=== PATIENT | female | born 1990 | race Caucasian/White ===

== ENCOUNTER 2022-05-30 15:51 | Emergency (ER) | payer OTHER ==
--- OUTSIDE RECORDS SUMMARY | 2022-05-30 15:55 | XMS REPORT | Continuity of Care Document ---
:1990 Author Organization [facility] t Address [address] [address] Care Team Providers Name Role Phone Harjit Rod Attending Clinician Unavailable Geneva Falcon Attending Clinician Unavailable Juana Dunaway Attending Clinician Unavailable Harjit Rod Admitting Clinician Unavailable Physician, No Primary or Family Admitting Clinician Unavaila ble Payers Payer Name Policy Type Policy Number Effective Date Expiration Date S ource Problems This patient has no known problems. Allergies, Adverse Reactions, Alerts Allergy Allergy Status Severity Reaction(s) Onset Inactive Treating Comm ents Source Name Type Date Date Clinician No Known DA Active U 2020-0 [facility] Clear s 00:00: [place] [facility] No Known DA Active U 2020-0 [facility] 06-03 Clear s 00:00: [address] No Known DA Active U 2020-0 [facility] 03-30 Clear s 00:00: [address] No Known DA Active U 2020-0 [facility] 03-30 Clear s 00:00: [address] No Known DA Active U 2015-0 [facility] 02-22 Clear s 00:00: [address] No Known DA Active U 2015-0 [facility]ie 4 Clear s 00:00: Espinoza [address] [place] [address] Medications This patient has no known medications. Procedures Procedure Date / Time Performed Performing Clinician Roberto edmond [id number] 2020-06-23 00:00:00 [facility] Encounters Start End Encounter Admission Attending Care Care Encounter Source Date/Time Date/Time Type Type Clinicians Facility Department ID 2020-07-08 Inpatient Viola, [facility] OUTD [id number] [facility] 07:15:00 Geffrey [address] [facility] 2020-06-23 Inpatient CHRISS Rod, [facility] OBPP [id number] [facility] 05:31:00 Geffrey [address] [facility] 2020-06-20 Inpatient Terrie, [facility] EMILIE [id number] [facility] 01:00:00 [place] [address] [facility] 2020-06-03 Inpatient Viola, [facility] EMILIE [id number] [facility] 12:08:00 Geffrey [address] [facility] 2020-03-30 Inpatient Binh [facility] EMILIE [id number] [facility] 15:12:00 Eric, [address] Ayan Arias [facility] 2020-06-11 2020-06-11 Outpatient CHRISS Rod [facility] OUTD [id number] [facility] 12:13:00 12:13:00 Geffrey [address] [facility] 2020-05-28 2020-05-28 Outpatient DEANNE Rod [facility] EMILIE [id number] [facility] 12:45:00 12:45:00 Geffrey [address] [facility] Results Test Description Test Time Test Comments Results Result Comments Source CBC W/AUTO DIFF 2020-06-24 06:54:00 Test Item Value Reference Range Interpretation Comme nts WHITE BLOOD CELL (test code = WBC) 12.10 x10 3/uL 4.5-11.0 H RED BLOOD CELL (test code = RBC) 3.37 x10 6/uL 3.54-5.02 L HEMOGLOBIN (test code = HGB) 9.5 g/dL 11.0-15.0 L HEMATOCRIT (test code = HCT) 31.3 % 33.0-45.0 L MEAN CELL VOLUME (test code = MCV) 92.9 fL 81.0-99.0 N MEAN CELL HGB (test code = MCH) 28.2 pg 27.0-33.0 N MEAN CELL HGB CONCETRATION (test code = MCHC) 30.4 g/dL 33.0-37. 0 L RED CELL DISTRIBUTION WIDTH CV (test code = RDW) 14.9 % 11.5- 14.5 H RED CELL DISTRIBUTION WIDTH SD (test code = RDW-SD) 49.9 fL 37 .0-54.0 N PLATELET COUNT (test code = PLT) 256 x10 3/uL 150-400 N MEAN PLATELET VOLUME (test code = MPV) 12.3 fL 7.0-9.0 H NEUTROPHIL % (test code = NT%) 71.3 % 56.0-77.0 N IMMATURE GRANULOCYTE % (test code = IG%) 0.7 % 0.0-2.0 N LYMPHOCYTE % (test code = LY%) 19.7 % 14.0-32.0 N MONOCYTE % (test code = MO%) 7.8 % 4.8-9.0 N EOSINOPHIL % (test code = EO%) 0.2 % 0.3-3.7 L BASOPHIL % (test code = BA%) 0.3 % 0.0-2.0 N NUCLEATED RBC % (test code = NRBC%) 0.0 % 0-0 N NEUTROPHIL # (test code = NT#) 8.64 x10 3/uL 2.0-7.6 H IMMATURE GRANULOCYTE # (test code = IG#) 0.08 x10 3/uL 0.00-0.03 H LYMPHOCYTE # (test code = LY#) 2.38 x10 3/uL 1.0-3.8 N MONOCYTE # (test code = MO#) 0.94 x10 3/uL 0.1-0.8 H EOSINOPHIL # (test code = EO#) 0.02 x10 3/uL 0.0-0.2 N BASOPHIL # (test code = BA#) 0.04 x10 3/uL 0.0-0.2 N NUCLEATED RBC # (test code = NRBC#) 0.00 x10 3/uL 0.0-0.1 N MANUAL DIFF REQUIRED (test code = MDIFF) NO COMPREHENSIVE METABOLIC [id number] 05:33:00 Test Item Value Reference Range Interpretation Comments SODIUM (test code = NA) 137 mEq/L 134-147 N POTASSIUM (test code = 3.8 mEq/L 3.4-5.0 N K) CHLORIDE (test code = 106 mEq/L 100-108 N CL) CARBON DIOXIDE (test 20 mEq/L 21-33 L code = CO2) ANION GAP (test code = 15 0-20 N GAP) GLUCOSE (test code = 87 mg/dL 70-110 N GLU) BLOOD UREA NITROGEN 7 mg/dL 7-18 N (test code = BUN) GLOMERULAR FILTRATION 119.9 110-120 N Units of measure = RATE (test code = GFR) ml/mi n/1.73 m2 CREATININE (test code = 0.6 mg/dL 0.6-1.3 N CREAT) TOTAL PROTEIN (test 5.0 g/dL 6.4-8.2 L code = PROT) ALBUMIN (test code = 2.30 g/dL 3.4-5.0 L ALB) CALCIUM (test code = 8.3 mg/dL 8.0-10.5 N CA) BILIRUBIN TOTAL (test 0.30 mg/dL 0.0-1.0 N code = BILT) SGOT/AST (test code = 16 IUnit/L 15-37 N AST) SGPT/ALT (test code = 11 IUnit/L 30-65 L ALT) ALKALINE PHOSPHATASE 105 IUnit/L 20-125 N TOTAL (test code = ALKP) RAPID PLASMA [id number] 10:18:00 Test Item Value Reference Range Interpretation Comments RAPID PLASMA REAGIN (test code = NONREACTIVE NONREACTIVE RPR) AG HEPATITIS B [id number] 10:18:00 Test Item Value Reference Range Interpretation Comments AG HEPATITIS B SURFACE NON REACTIVE INDEX NonReactive (test code = HBSAG) AB HIV 1 10:18:00 Test Item Value Reference Range Interpretation Comments AB HIV 1 2 (test code = NONREACTIVE INDEX NONREACTIVE [id number]) COVID 19 Asymptomatic IH [id number] 15:55:00 Test Item Value Reference Range Interpretation Comments COVID 19 Asymptomatic Negative Negative A nega tive result is IH AG (test code = presumpti ve and should COVNONPUIAG) be confirmedwit h an FDA authorized mole cular assay, if neces orion forpatient amy gement.A positive result does not rule out co-inf ections withother patho gens.This test detects alejandra viable (live) and non-viable,SARS -CoV, and SARS-CoV-2. Leonides t performance dep ends on theamount of vi layo (antigen) in th e sample.This leonides t has not been FDA cleare d or approved; the t est hasbeen authori zed by FDA under an Em ergency Use Authorizati on(EUA) for use by labo ratories certified under the CLIA thatmeet the requirements to perform moderate, high or waivedcomplexit y tests. RAPID PLASMA [id number] 13:09:00 Test Item Value Reference Range Interpretation Comments RAPID PLASMA REAGIN (test code = RPR) NONREACTIVE AG HEPATITIS B [id number] 13:09:00 Test Item Value Reference Range Interpretation Comments AG HEPATITIS B SURFACE NON REACTIVE INDEX NonReactive (test code = HBSAG) AB HIV 1 13:09:00 Test Item Value Reference Range Interpretation Comments AB HIV 1 2 (test code = NONREACTIVE INDEX NONREACTIVE [id number]) CBC W/AUTO [id number] 12:07:00 Test Item Value Reference Range Interpretation Comments WHITE BLOOD CELL (test code = 9.48 x10 3/uL 4.5-11.0 N WBC) RED BLOOD CELL (test code = 3.94 x10 6/uL 3.54-5.02 N RBC) HEMOGLOBIN (test code = HGB) 11.0 g/dL 11.0-15.0 N HEMATOCRIT (test code = HCT) 35.9 % 33.0-45.0 N MEAN CELL VOLUME (test code = 91.1 fL 81.0-99.0 N MCV) MEAN CELL HGB (test code = MCH) 27.9 pg 27.0-33.0 N MEAN CELL HGB CONCETRATION 30.6 g/dL 33.0-37.0 L (test code = MCHC) RED CELL DISTRIBUTION WIDTH CV 14.6 % 11.5-14.5 H (test code = RDW) RED CELL DISTRIBUTION WIDTH SD 47.9 fL 37.0-54.0 N (test code = RDW-SD) PLATELET COUNT (test code = 275 x10 3/uL 150-400 N PLT) MEAN PLATELET VOLUME (test code 11.6 fL 7.0-9.0 H = MPV) NEUTROPHIL % (test code = NT%) 74.8 % 56.0-77.0 N IMMATURE GRANULOCYTE % (test 0.9 % 0.0-2.0 N code = IG%) LYMPHOCYTE % (test code = LY%) 17.1 % 14.0-32.0 N MONOCYTE % (test code = MO%) 6.3 % 4.8-9.0 N EOSINOPHIL % (test code = EO%) 0.6 % 0.3-3.7 N BASOPHIL % (test code = BA%) 0.3 % 0.0-2.0 N NUCLEATED RBC % (test code = 0.0 % 0-0 N NRBC%) NEUTROPHIL # (test code = NT#) 7.08 x10 3/uL 2.0-7.6 N IMMATURE GRANULOCYTE # (test 0.09 x10 3/uL 0.00-0.03 H code = IG#) LYMPHOCYTE # (test code = LY#) 1.62 x10 3/uL 1.0-3.8 N MONOCYTE # (test code = MO#) 0.60 x10 3/uL 0.1-0.8 N EOSINOPHIL # (test code = EO#) 0.06 x10 3/uL 0.0-0.2 N BASOPHIL # (test code = BA#) 0.03 x10 3/uL 0.0-0.2 N NUCLEATED RBC # (test code = 0.00 x10 3/uL 0.0-0.1 N NRBC#) MANUAL DIFF REQUIRED (test code NO = MDIFF) URINALYSIS [id number] 02:42:00 Test Item Value Reference Range Interpretation Comments UA COLOR (test code = COLU) YELLOW YEL/STRAW UA APPEARANCE (test code = APPU) CLEAR CLEAR UA GLUCOSE DIPSTICK (test code = NEGATIVE NEGATIVE DGLUU) UA BILIRUBIN DIPSTICK (test code NEGATIVE NEGATIVE = BILU) UA KETONE DIPSTICK (test code = NEGATIVE NEGATIVE KETU) UA SPECIFIC GRAVITY (test code = 1.023 1.005-1.030 N SGU) UA BLOOD DIPSTICK (test code = 2+ NEGATIVE A BRODERICK) UA PH DIPSTICK (test code = ZINA) 6.0 5.0-7.0 N UA PROTEIN DIPSTICK (test code = 1+ NEGATIVE A PROU) UA UROBILINIOGEN DIPSTICK (test 0.2 mg/dL 0.2-1.0 code = URO) UA NITRITE DIPSTICK (test code = NEGATIVE NEGATIVE DEJUAN) UA LEUKOCYTE ESTERASE DIPSTICK NEGATIVE NEGATIVE (test code = LEUU) UA RBC (test code = RBCU) >50 RBC/HPF 0-3 A UA WBC NO REFLEX (test code = 4-9 WBC/HPF 0-3 A WBCUCL) UA BACTERIA (test code = BACU) 2+ /HPF NONE SEEN A UA SQUAMOUS CELLS (test code = 0-5 /HPF NONE SEEN SQU) UA CALCIUM OXALATE CRYSTALS (test TRACE /HPF NONE SEEN code = CAOXU) UA MUCUS (test code = MUCU) 2+ /LPF NONE SEEN A UR PROTEIN/CREATININE [id number] 02:42:00 Test Item Value Reference Range Interpretation Comments UR PROTEIN RANDOM 27 mg/dL No te: Change in (test code = UNITS of MEASUR EMENT. PROTU) The Refe rence Range and Metho d Performance specificationsh ave not been establishe d for this fluid. The test resultshould be correlated into the clinical contex t forinterpretati on. UR CREATININE 160.8 mg/dL The Reference Range and RANDOM (test code Method Per formance = CREATU) specificationsh ave not been establishe d for this fluid. The test resultshould be correlated into the clinical contex t forinterpretati on. PROTEIN/CREATININ 0.17 E RATIO (test code = P/CRATIO) COMPREHENSIVE METABOLIC [id number] 02:15:00 Test Item Value Reference Range Interpretation Comments SODIUM (test code = NA) 138 mEq/L 134-147 N POTASSIUM (test code = 3.7 mEq/L 3.4-5.0 N K) CHLORIDE (test code = 108 mEq/L 100-108 N CL) CARBON DIOXIDE (test 20 mEq/L 21-33 L code = CO2) ANION GAP (test code = 13 0-20 N GAP) GLUCOSE (test code = 88 mg/dL 70-110 N GLU) BLOOD UREA NITROGEN 10 mg/dL 7-18 N (test code = BUN) GLOMERULAR FILTRATION 100.4 110-120 L Units of measure = RATE (test code = GFR) ml/mi n/1.73 m2 CREATININE (test code = 0.7 mg/dL 0.6-1.3 N CREAT) TOTAL PROTEIN (test 5.6 g/dL 6.4-8.2 L code = PROT) ALBUMIN (test code = 2.80 g/dL 3.4-5.0 L ALB) CALCIUM (test code = 8.7 mg/dL 8.0-10.5 N CA) BILIRUBIN TOTAL (test 0.30 mg/dL 0.0-1.0 N code = BILT) SGOT/AST (test code = 12 IUnit/L 15-37 L AST) SGPT/ALT (test code = 8 IUnit/L 30-65 L ALT) ALKALINE PHOSPHATASE 130 IUnit/L 20-125 H TOTAL (test code = ALKP) URIC [id number] 02:15:00 Test Item Value Reference Range Interpretation Comments URIC ACID (test code = URIC) 5.5 mg/dL 2.6-7.2 N LACTIC DEHYDROGENASE(LDH)2020-06-20 02:15:00 Test Item Value Reference Range Interpretation Comments LACTIC DEHYDROGENASE(LDH) (test 138 IUnits/L 84-246 N code = LDH) URINALYSIS [id number] 02:14:00 Test Item Value Reference Range Interpretation Comments UA COLOR (test code = COLU) YEL/STRAW UA APPEARANCE (test code = APPU) CLEAR UA GLUCOSE DIPSTICK (test code = NEGATIVE DGLUU) UA BILIRUBIN DIPSTICK (test code = NEGATIVE BILU) UA KETONE DIPSTICK (test code = NEGATIVE KETU) UA SPECIFIC GRAVITY (test code = 1.005-1.030 SGU) UA BLOOD DIPSTICK (test code = BRODERICK) NEGATIVE UA PH DIPSTICK (test code = ZINA) 5.0-7.0 UA PROTEIN DIPSTICK (test code = NEGATIVE PROU) UA UROBILINIOGEN DIPSTICK (test code mg/dL 0.2-1.0 = URO) UA NITRITE DIPSTICK (test code = NEGATIVE DEJUAN) UA LEUKOCYTE ESTERASE DIPSTICK (test NEGATIVE code = LEUU) UA RBC (test code = RBCU) RBC/HPF 0-3 UR PROTEIN/CREATININE [id number] 02:14:00 Test Item Value Reference Range Interpretation Comments UR PROTEIN RANDOM 27 mg/dL No te: Change in (test code = UNITS of MEASUR EMENT. PROTU) The Refe rence Range and Metho d Performance specificationsh ave not been establishe d for this fluid. The test resultshould be correlated into the clinical contex t forinterpretati on. UR CREATININE 160.8 mg/dL The Reference Range and RANDOM (test code Method Per formance = CREATU) specificationsh ave not been establishe d for this fluid. The test resultshould be correlated into the clinical contex t forinterpretati on. PROTEIN/CREATININ 0.17 E RATIO (test code = P/CRATIO) CBC W/AUTO [id number] 01:59:00 Test Item Value Reference Range Interpretation Comments WHITE BLOOD CELL (test code = 9.90 x10 3/uL 4.5-11.0 N WBC) RED BLOOD CELL (test code = 3.71 x10 6/uL 3.54-5.02 N RBC) HEMOGLOBIN (test code = HGB) 10.5 g/dL 11.0-15.0 L HEMATOCRIT (test code = HCT) 33.4 % 33.0-45.0 N MEAN CELL VOLUME (test code = 90.0 fL 81.0-99.0 N MCV) MEAN CELL HGB (test code = MCH) 28.3 pg 27.0-33.0 N MEAN CELL HGB CONCETRATION 31.4 g/dL 33.0-37.0 L (test code = MCHC) RED CELL DISTRIBUTION WIDTH CV 14.4 % 11.5-14.5 N (test code = RDW) RED CELL DISTRIBUTION WIDTH SD 46.5 fL 37.0-54.0 N (test code = RDW-SD) PLATELET COUNT (test code = 269 x10 3/uL 150-400 N PLT) MEAN PLATELET VOLUME (test code 11.2 fL 7.0-9.0 H = MPV) NEUTROPHIL % (test code = NT%) 71.7 % 56.0-77.0 N IMMATURE GRANULOCYTE % (test 0.7 % 0.0-2.0 N code = IG%) LYMPHOCYTE % (test code = LY%) 17.8 % 14.0-32.0 N MONOCYTE % (test code = MO%) 8.1 % 4.8-9.0 N EOSINOPHIL % (test code = EO%) 1.3 % 0.3-3.7 N BASOPHIL % (test code = BA%) 0.4 % 0.0-2.0 N NUCLEATED RBC % (test code = 0.0 % 0-0 N NRBC%) NEUTROPHIL # (test code = NT#) 7.10 x10 3/uL 2.0-7.6 N IMMATURE GRANULOCYTE # (test 0.07 x10 3/uL 0.00-0.03 H code = IG#) LYMPHOCYTE # (test code = LY#) 1.76 x10 3/uL 1.0-3.8 N MONOCYTE # (test code = MO#) 0.80 x10 3/uL 0.1-0.8 N EOSINOPHIL # (test code = EO#) 0.13 x10 3/uL 0.0-0.2 N BASOPHIL # (test code = BA#) 0.04 x10 3/uL 0.0-0.2 N NUCLEATED RBC # (test code = 0.00 x10 3/uL 0.0-0.1 N NRBC#) MANUAL DIFF REQUIRED (test code NO = MDIFF) COVID 19 Asymptomatic IH [id number] 15:46:00 Test Item Value Reference Range Interpretation Comments COVID 19 Asymptomatic Negative Negative A nega tive result is IH AG (test code = presumpti ve and should COVNONPUIAG) be confirmedwit h an FDA authorized mole cular assay, if neces orion forpatient amy gement.A positive result does not rule out co-inf ections withother patho gens.This test detects alejandra th viable (live) and non-viable,SARS -CoV, and SARS-CoV-2. Leonides t performance dep ends on theamount of vi layo (antigen) in th e sample.This leonides t has not been FDA cleare d or approved; the t est hasbeen authori zed by FDA under an Em ergency Use Authorizati on(EUA) for use by labo ratories certified under the CLIA thatmeet the requirements to perform moderate, high or waivedcomplexit y tests. COMMENTS: OB ELEVATED BP- US PREG AFTER [id number] 15:21:00 Name: JORJE PIZANO : 1990 Age/S: 29 / F [address] [place] [address] Unit #: [id number] Loc: [place] [address] Phys: Harjit Rod MD Acct: [id number] Dis Date: Status: ADMIN PHONE #: [phone] Exam Date: 06/03/2020 1509 FAX #: [phone] Reason: COMPLTE OB, ELEVATEDBP EXAMS: CPT CODE: [id number] US PREG AFTER 1ST TRI 61915 PROCEDURE: OBSTETRICAL ULTRASOUND INDICAT ION: Elevated blood pressure. EGA 34 weeks 0 days COMPARISON: There are no previous relevant studiesavailable for correlation. TECHNIQUE: Obstetrical ultrasound is performed with grayscale and M-mode imaging. LIMITATIONS: positioning. FINDINGS: There is a single living intrauterine fetus in cephalic presentation. Limited assessment of anatomy without abnormality demonstrated. The placenta is posterior grade 2 with no evidence for previa. Cervix is not well-visualized on transabdominal imaging, grossly closed. No abnormal fluid collection. ULTRASOUND FINDINGS: Gestation: Single: Yes Cardiac Motion: Yes (BPM):119-124 Presentation: Cephalic Placenta Location: Posterior Placenta Grade: 2 Placenta Previa: No ANATOMY: Head (Ventricles, Choroid, Cerebellum, Face): Limited Four Chamber Heart: Limited Cord ins./Vessel #: Yes 3 vessel Spine long: Yes Spine transverse: Yes Stomach:Yes Bladder: Yes Kidneys: Yes Extremities: Limited Amniotic Fluid: Yes Uterus/Cervix/Adnexa: Clinical: LMP= MA= 34wks 0days Ultrasound: MA= 34 wks 2 days BPD: 8.5 cm 34 weeks 1 days HC: 32.1 cm 36 weeks 1 days AC: 29.6 cm 33 weeks 4 days FL: 6.5 cm 33 weeks 3 days Ratios Ratio Range HC/AC 1.08 0.96-1.14 FL/AC 21.9 20.00-24.00 PAGE 1 Signed Report (CONTINUED) Name: JORJE PIZANO : 1990 Age/S: 29 / F [address] [place] [address] Unit #: [id number] Loc: [place] [address] Phys: Harjit Rod MD Acct: [id number] Dis Date: Status: ADM IN PHONE #: [phone] Exam Date: 06/03/2020 1506 FAX #: [phone] Reason: COMPLTE OB, ELEVATED BP EXAMS: CPT CODE: [id number] PREG AFTER 1ST TRI 83562 <Continued> FL/BPD 76.48 71.0-87.0 EFW: 2296 +/- 344 gm LMP%: 39.4 ADALID: 8.6 cm S/D Ratio: 3.3 IMPRESSION: 1. Single living intrauterine fetus in cephalic presentationat an estimated gestational age of 34 weeks 2 days. 2. Estimated weight is at the 39th percentile. 3. Cord Doppler ratio mildly elevated. SL: PIPER at 1521 Reported and signed by: Luis Larsen M.D. CC: Harjit Rod Technologist: Lorin Linda RDMS(AB)(RCT) Trnscb Date/Time: 06/03/2020 (152) t.ASHIA Orig Print D/T: S: 06/03/2020 (1524) Probe: PAGE 2 Signed ReportCOMPREHENSIVE METABOLIC [id number] 14:05:00 Test Item Value Reference Range Interpretation Comments SODIUM (test code = NA) 137 mEq/L 134-147 N POTASSIUM (test code = 3.9 mEq/L 3.4-5.0 N K) CHLORIDE (test code = 109 mEq/L 100-108 H CL) CARBON DIOXIDE (test 21 mEq/L 21-33 N code = CO2) ANION GAP (test code = 11 0-20 N GAP) GLUCOSE (test code = 70 mg/dL 70-110 N GLU) BLOOD UREA NITROGEN 11 mg/dL 7-18 N (test code = BUN) GLOMERULAR FILTRATION 148.0 110-120 H Units of measure = RATE (test code = GFR) ml/mi n/1.73 m2 CREATININE (test code = 0.5 mg/dL 0.6-1.3 L CREAT) TOTAL PROTEIN (test 7.0 g/dL 6.4-8.2 N code = PROT) ALBUMIN (test code = 2.70 g/dL 3.4-5.0 L ALB) CALCIUM (test code = 9.3 mg/dL 8.0-10.5 N CA) BILIRUBIN TOTAL (test 0.2 MG/DL <1.5 N code = BILT) SGOT/AST (test code = 13 IUnit/L 15-37 L AST) SGPT/ALT (test code = 18 IUnit/L 15-65 N ALT) ALKALINE PHOSPHATASE 120 IUnit/L 20-125 N TOTAL (test code = ALKP) URIC [id number] 14:05:00 Test Item Value Reference Range Interpretation Comments URIC ACID (test code = URIC) 4.9 mg/dL 2.6-7.2 N LACTIC DEHYDROGENASE(LDH)2020-06-03 14:05:00 Test Item Value Reference Range Interpretation Comments LACTIC DEHYDROGENASE(LDH) (test 160 IUnits/L 84-246 N code = LDH) CBC W/AUTO [id number] 13:49:00 Test Item Value Reference Range Interpretation Comments WHITE BLOOD CELL (test code = 10.43 x10 3/uL 4.5-11.0 N WBC) RED BLOOD CELL (test code = 3.99 x10 6/uL 3.54-5.02 N RBC) HEMOGLOBIN (test code = HGB) 11.3 g/dL 11.0-15.0 N HEMATOCRIT (test code = HCT) 35.4 % 33.0-45.0 N MEAN CELL VOLUME (test code = 88.7 fL 81.0-99.0 N MCV) MEAN CELL HGB (test code = 28.3 pg 27.0-33.0 N MCH) MEAN CELL HGB CONCETRATION 31.9 g/dL 33.0-37.0 L (test code = MCHC) RED CELL DISTRIBUTION WIDTH CV 13.2 % 11.5-14.5 N (test code = RDW) RED CELL DISTRIBUTION WIDTH SD 42.8 fL 37.0-54.0 N (test code = RDW-SD) PLATELET COUNT (test code = 294 x10 3/uL 150-400 N PLT) MEAN PLATELET VOLUME (test 11.2 fL 7.0-9.0 H code = MPV) NEUTROPHIL % (test code = NT%) 76.9 % 56.0-77.0 N IMMATURE GRANULOCYTE % (test 1.1 % 0.0-2.0 N code = IG%) LYMPHOCYTE % (test code = LY%) 13.7 % 14.0-32.0 L MONOCYTE % (test code = MO%) 7.2 % 4.8-9.0 N EOSINOPHIL % (test code = EO%) 0.8 % 0.3-3.7 N BASOPHIL % (test code = BA%) 0.3 % 0.0-2.0 N NUCLEATED RBC % (test code = 0.0 % 0-0 N NRBC%) NEUTROPHIL # (test code = NT#) 8.03 x10 3/uL 2.0-7.6 H IMMATURE GRANULOCYTE # (test 0.11 x10 3/uL 0.00-0.03 H code = IG#) LYMPHOCYTE # (test code = LY#) 1.43 x10 3/uL 1.0-3.8 N MONOCYTE # (test code = MO#) 0.75 x10 3/uL 0.1-0.8 N EOSINOPHIL # (test code = EO#) 0.08 x10 3/uL 0.0-0.2 N BASOPHIL # (test code = BA#) 0.03 x10 3/uL 0.0-0.2 N NUCLEATED RBC # (test code = 0.00 x10 3/uL 0.0-0.1 N NRBC#) MANUAL DIFF REQUIRED (test NO code = MDIFF) URINALYSIS [id number] 13:34:00 Test Item Value Reference Range Interpretation Comments UA COLOR (test code = COLU) YELLOW YEL/STRAW UA APPEARANCE (test code = APPU) CLEAR CLEAR UA GLUCOSE DIPSTICK (test code = NEGATIVE NEGATIVE DGLUU) UA BILIRUBIN DIPSTICK (test code NEGATIVE NEGATIVE = BILU) UA KETONE DIPSTICK (test code = NEGATIVE NEGATIVE KETU) UA SPECIFIC GRAVITY (test code = 1.015 1.005-1.030 N SGU) UA BLOOD DIPSTICK (test code = 3+ NEGATIVE A BRODERICK) UA PH DIPSTICK (test code = ZINA) 6.0 5.0-7.0 N UA PROTEIN DIPSTICK (test code = NEGATIVE NEGATIVE PROU) UA UROBILINIOGEN DIPSTICK (test 0.2 mg/dL 0.2-1.0 code = URO) UA NITRITE DIPSTICK (test code = NEGATIVE NEGATIVE DEJUAN) UA LEUKOCYTE ESTERASE DIPSTICK NEGATIVE NEGATIVE (test code = LEUU) UA RBC (test code = RBCU) >50 RBC/HPF 0-3 A UA WBC NO REFLEX (test code = 4-9 WBC/HPF 0-3 A WBCUCL) UA BACTERIA (test code = BACU) 4+ /HPF NONE SEEN A UA SQUAMOUS CELLS (test code = 0-5 /HPF NONE SEEN SQU) UA MUCUS (test code = MUCU) 1+ /LPF NONE SEEN UR PROTEIN [id number] 15:54:00 Test Item Value Reference Range Interpretation Comments UR PROTEIN 21 mg/dL Note: C hange in RANDOM (test UNITS of MEASUR EMENT. code = PROTU) The Ref erence Range and Method Perf ormance specificationsh ave not been establishe d for this fluid. The test resultshould be correlated into the clinic al context forinterpretati on. UR PROTEIN 24HR 304 MG/24HR 0-150 (test code = [id number]) UR VOLUME (test 1450 mL code = VOL) UR PROTEIN [id number] 15:44:00 Test Item Value Reference Range Interpretation Comments UR PROTEIN RANDOM (test code = PROTU) mg/dL UR VOLUME (test code = VOL) 1450 mL COMPREHENSIVE METABOLIC [id number] 14:33:00 Test Item Value Reference Range Interpretation Comments SODIUM (test code = NA) 138 mEq/L 134-147 N POTASSIUM (test code = 4.2 mEq/L 3.4-5.0 N K) CHLORIDE (test code = 108 mEq/L 100-108 N CL) CARBON DIOXIDE (test 25 mEq/L 21-33 N code = CO2) ANION GAP (test code = 9 0-20 N GAP) GLUCOSE (test code = 73 mg/dL 70-110 N GLU) BLOOD UREA NITROGEN 11 mg/dL 7-18 N (test code = BUN) GLOMERULAR FILTRATION 100.4 110-120 L Units of measure = RATE (test code = GFR) ml/mi n/1.73 m2 CREATININE (test code = 0.7 mg/dL 0.6-1.3 N CREAT) TOTAL PROTEIN (test 7.0 g/dL 6.4-8.2 N code = PROT) ALBUMIN (test code = 2.80 g/dL 3.4-5.0 L ALB) CALCIUM (test code = 9.3 mg/dL 8.0-10.5 N CA) BILIRUBIN TOTAL (test 0.3 MG/DL <1.5 N code = BILT) SGOT/AST (test code = 15 IUnit/L 15-37 N AST) SGPT/ALT (test code = 20 IUnit/L 15-65 N ALT) ALKALINE PHOSPHATASE 117 IUnit/L 20-125 N TOTAL (test code = ALKP) URIC [id number] 14:33:00 Test Item Value Reference Range Interpretation Comments URIC ACID (test code = URIC) 4.8 mg/dL 2.6-7.2 N LACTIC DEHYDROGENASE(LDH)[id number] 14:33:00 Test Item Value Reference Range Interpretation Comments LACTIC DEHYDROGENASE(LDH) (test 167 IUnits/L 84-246 N code = LDH) AMNISURE (ROM) [id number] 14:12:00 Test Item Value Reference Range Interpretation Comments AMNISURE (ROM) TEST (test code = NEGATIVE NEGATIVE AMNI) URINALYSIS [id number] 14:04:00 Test Item Value Reference Range Interpretation Comments UA COLOR (test code = COLU) YELLOW YEL/STRAW UA APPEARANCE (test code = CLEAR CLEAR APPU) UA GLUCOSE DIPSTICK (test code NEGATIVE NEGATIVE = DGLUU) UA BILIRUBIN DIPSTICK (test NEGATIVE NEGATIVE code = BILU) UA KETONE DIPSTICK (test code = NEGATIVE NEGATIVE KETU) UA SPECIFIC GRAVITY (test code 1.017 1.005-1.030 N = SGU) UA BLOOD DIPSTICK (test code = 2+ NEGATIVE A BRODERICK) UA PH DIPSTICK (test code = 6.0 5.0-7.0 N ZINA) UA PROTEIN DIPSTICK (test code NEGATIVE NEGATIVE = PROU) UA UROBILINIOGEN DIPSTICK (test 0.2 mg/dL 0.2-1.0 code = URO) UA NITRITE DIPSTICK (test code NEGATIVE NEGATIVE = DEJUAN) UA LEUKOCYTE ESTERASE DIPSTICK NEGATIVE NEGATIVE (test code = LEUU) UA RBC (test code = RBCU) 21-50 RBC/HPF 0-3 UA WBC NO REFLEX (test code = 4-9 WBC/HPF 0-3 A WBCUCL) UA BACTERIA (test code = BACU) 4+ /HPF NONE SEEN A UA SQUAMOUS CELLS (test code = 0-5 /HPF NONE SEEN SQU) UA MUCUS (test code = MUCU) 1+ /LPF NONE SEEN CBC W/AUTO [id number] 13:53:00 Test Item Value Reference Range Interpretation Comments WHITE BLOOD CELL (test code = 11.25 x10 3/uL 4.5-11.0 H WBC) RED BLOOD CELL (test code = 3.91 x10 6/uL 3.54-5.02 N RBC) HEMOGLOBIN (test code = HGB) 11.0 g/dL 11.0-15.0 N HEMATOCRIT (test code = HCT) 35.1 % 33.0-45.0 N MEAN CELL VOLUME (test code = 89.8 fL 81.0-99.0 N MCV) MEAN CELL HGB (test code = 28.1 pg 27.0-33.0 N MCH) MEAN CELL HGB CONCETRATION 31.3 g/dL 33.0-37.0 L (test code = MCHC) RED CELL DISTRIBUTION WIDTH CV 13.1 % 11.5-14.5 N (test code = RDW) RED CELL DISTRIBUTION WIDTH SD 42.6 fL 37.0-54.0 N (test code = RDW-SD) PLATELET COUNT (test code = 316 x10 3/uL 150-400 N PLT) MEAN PLATELET VOLUME (test 11.0 fL 7.0-9.0 H code = MPV) NEUTROPHIL % (test code = NT%) 76.0 % 56.0-77.0 N IMMATURE GRANULOCYTE % (test 0.6 % 0.0-2.0 N code = IG%) LYMPHOCYTE % (test code = LY%) 14.7 % 14.0-32.0 N MONOCYTE % (test code = MO%) 7.6 % 4.8-9.0 N EOSINOPHIL % (test code = EO%) 0.7 % 0.3-3.7 N BASOPHIL % (test code = BA%) 0.4 % 0.0-2.0 N NUCLEATED RBC % (test code = 0.0 % 0-0 N NRBC%) NEUTROPHIL # (test code = NT#) 8.56 x10 3/uL 2.0-7.6 H IMMATURE GRANULOCYTE # (test 0.07 x10 3/uL 0.00-0.03 H code = IG#) LYMPHOCYTE # (test code = LY#) 1.65 x10 3/uL 1.0-3.8 N MONOCYTE # (test code = MO#) 0.85 x10 3/uL 0.1-0.8 H EOSINOPHIL # (test code = EO#) 0.08 x10 3/uL 0.0-0.2 N BASOPHIL # (test code = BA#) 0.04 x10 3/uL 0.0-0.2 N NUCLEATED RBC # (test code = 0.00 x10 3/uL 0.0-0.1 N NRBC#) MANUAL DIFF REQUIRED (test NO code = MDIFF) CBC W/AUTO [id number] 13:51:00 Test Item Value Reference Range Interpretation Comments WHITE BLOOD CELL (test code = x10 3/uL 4.5-11.0 WBC) RED BLOOD CELL (test code = RBC) x10 6/uL 3.54-5.02 HEMOGLOBIN (test code = HGB) 11.0 g/dL 11.0-15.0 N HEMATOCRIT (test code = HCT) 35.1 % 33.0-45.0 N MEAN CELL VOLUME (test code = fL 81.0-99.0 MCV) MEAN CELL HGB (test code = MCH) pg 27.0-33.0 MEAN CELL HGB CONCETRATION (test g/dL 33.0-37.0 code = MCHC) RED CELL DISTRIBUTION WIDTH CV % 11.5-14.5 (test code = RDW) PLATELET COUNT (test code = PLT) 316 x10 3/uL 150-400 N NEUTROPHIL % (test code = NT%) % 56.0-77.0 LYMPHOCYTE % (test code = LY%) % 14.0-32.0 NEUTROPHIL # (test code = NT#) x10 3/uL 2.0-7.6 LYMPHOCYTE # (test code = LY#) x10 3/uL 1.0-3.8 MANUAL DIFF REQUIRED (test code = MDIFF) URINALYSIS [id number] 16:36:00 Test Item Value Reference Range Interpretation Comments UA COLOR (test code = COLU) YELLOW YEL/STRAW UA APPEARANCE (test code = APPU) CLEAR CLEAR UA GLUCOSE DIPSTICK (test code = NEGATIVE NEGATIVE DGLUU) UA BILIRUBIN DIPSTICK (test code NEGATIVE NEGATIVE = BILU) UA KETONE DIPSTICK (test code = NEGATIVE NEGATIVE KETU) UA SPECIFIC GRAVITY (test code = 1.015 1.005-1.030 N SGU) UA BLOOD DIPSTICK (test code = NEGATIVE NEGATIVE BRODERICK) UA PH DIPSTICK (test code = ZINA) 6.0 5.0-7.0 N UA PROTEIN DIPSTICK (test code = NEGATIVE NEGATIVE PROU) UA UROBILINIOGEN DIPSTICK (test 0.2 mg/dL 0.2-1.0 code = URO) UA NITRITE DIPSTICK (test code = NEGATIVE NEGATIVE DEJUAN) UA LEUKOCYTE ESTERASE DIPSTICK NEGATIVE NEGATIVE (test code = LEUU) UA RBC (test code = RBCU) 4-10 RBC/HPF 0-3 UA WBC NO REFLEX (test code = 0-3 WBC/HPF 0-3 WBCUCL) UA BACTERIA (test code = BACU) 4+ /HPF NONE SEEN A UA SQUAMOUS CELLS (test code = 0-5 /HPF NONE SEEN SQU) UA MUCUS (test code = MUCU) TRACE /LPF NONE SEEN UA AMORPHOUS SEDIMENT (test code TRACE /HPF NONE = AMORU) UR PROTEIN/CREATININE [id number] 16:36:00 Test Item Value Reference Range Interpretation Comments UR PROTEIN RANDOM 11 mg/dL No te: Change in (test code = UNITS of MEASUR EMENT. PROTU) The Refe rence Range and Metho d Performance specificationsh ave not been establishe d for this fluid. The test resultshould be correlated into the clinical contex t forinterpretati on. UR CREATININE 102.0 mg/dL The Reference Range and RANDOM (test code Method Per formance = CREATU) specificationsh ave not been establishe d for this fluid. The test resultshould be correlated into the clinical contex t forinterpretati on. PROTEIN/CREATININ 0.11 E RATIO (test code = P/CRATIO) COMPREHENSIVE METABOLIC [id number] 16:35:00 Test Item Value Reference Range Interpretation Comments SODIUM (test code = NA) 138 mEq/L 134-147 N POTASSIUM (test code = 3.7 mEq/L 3.4-5.0 N K) CHLORIDE (test code = 108 mEq/L 100-108 N CL) CARBON DIOXIDE (test 24 mEq/L 21-33 N code = CO2) ANION GAP (test code = 10 0-20 N GAP) GLUCOSE (test code = 89 mg/dL 70-110 N GLU) BLOOD UREA NITROGEN 8 mg/dL 7-18 N (test code = BUN) GLOMERULAR FILTRATION 119.9 110-120 N Units of measure = RATE (test code = GFR) ml/mi n/1.73 m2 CREATININE (test code = 0.6 mg/dL 0.6-1.3 N CREAT) TOTAL PROTEIN (test 6.7 g/dL 6.4-8.2 N code = PROT) ALBUMIN (test code = 2.50 g/dL 3.4-5.0 L ALB) CALCIUM (test code = 8.8 mg/dL 8.0-10.5 N CA) BILIRUBIN TOTAL (test 0.2 MG/DL <1.5 N code = BILT) SGOT/AST (test code = 10 IUnit/L 15-37 L AST) SGPT/ALT (test code = 23 IUnit/L 15-65 N ALT) ALKALINE PHOSPHATASE 109 IUnit/L 20-125 N TOTAL (test code = ALKP) URIC [id number] 16:35:00 Test Item Value Reference Range Interpretation Comments URIC ACID (test code = URIC) 4.0 mg/dL 2.6-7.2 N LACTIC DEHYDROGENASE(LDH)[id number] 16:35:00 Test Item Value Reference Range Interpretation Comments LACTIC DEHYDROGENASE(LDH) (test 152 IUnits/L 84-246 N code = LDH) URINALYSIS [id number] 16:34:00 Test Item Value Reference Range Interpretation Comments UA COLOR (test code = COLU) YEL/STRAW UA APPEARANCE (test code = APPU) CLEAR UA GLUCOSE DIPSTICK (test code = NEGATIVE DGLUU) UA BILIRUBIN DIPSTICK (test code = NEGATIVE BILU) UA KETONE DIPSTICK (test code = NEGATIVE KETU) UA SPECIFIC GRAVITY (test code = 1.005-1.030 SGU) UA BLOOD DIPSTICK (test code = BRODERICK) NEGATIVE UA PH DIPSTICK (test code = ZINA) 5.0-7.0 UA PROTEIN DIPSTICK (test code = NEGATIVE PROU) UA UROBILINIOGEN DIPSTICK (test code mg/dL 0.2-1.0 = URO) UA NITRITE DIPSTICK (test code = NEGATIVE DEJUAN) UA LEUKOCYTE ESTERASE DIPSTICK (test NEGATIVE code = LEUU) UA RBC (test code = RBCU) RBC/HPF 0-3 UR PROTEIN/CREATININE [id number] 16:34:00 Test Item Value Reference Range Interpretation Comments UR PROTEIN RANDOM 11 mg/dL No te: Change in (test code = UNITS of MEASUR EMENT. PROTU) The Refe rence Range and Metho d Performance specificationsh ave not been establishe d for this fluid. The test resultshould be correlated into the clinical contex t forinterpretati on. UR CREATININE 102.0 mg/dL The Reference Range and RANDOM (test code Method Per formance = CREATU) specificationsh ave not been establishe d for this fluid. The test resultshould be correlated into the clinical contex t forinterpretati on. PROTEIN/CREATININ 0.11 E RATIO (test code = P/CRATIO) CBC W/AUTO [id number] 16:20:00 Test Item Value Reference Range Interpretation Comments WHITE BLOOD CELL (test code = 13.58 x10 3/uL 4.5-11.0 H WBC) RED BLOOD CELL (test code = 3.87 x10 6/uL 3.54-5.02 N RBC) HEMOGLOBIN (test code = HGB) 11.4 g/dL 11.0-15.0 N HEMATOCRIT (test code = HCT) 34.9 % 33.0-45.0 N MEAN CELL VOLUME (test code = 90.2 fL 81.0-99.0 N MCV) MEAN CELL HGB (test code = 29.5 pg 27.0-33.0 N MCH) MEAN CELL HGB CONCETRATION 32.7 g/dL 33.0-37.0 L (test code = MCHC) RED CELL DISTRIBUTION WIDTH CV 13.3 % 11.5-14.5 N (test code = RDW) RED CELL DISTRIBUTION WIDTH SD 43.6 fL 37.0-54.0 N (test code = RDW-SD) PLATELET COUNT (test code = 299 x10 3/uL 150-400 N PLT) MEAN PLATELET VOLUME (test 10.6 fL 7.0-9.0 H code = MPV) NEUTROPHIL % (test code = NT%) 77.6 % 56.0-77.0 H IMMATURE GRANULOCYTE % (test 0.8 % 0.0-2.0 N code = IG%) LYMPHOCYTE % (test code = LY%) 13.3 % 14.0-32.0 L MONOCYTE % (test code = MO%) 6.6 % 4.8-9.0 N EOSINOPHIL % (test code = EO%) 1.3 % 0.3-3.7 N BASOPHIL % (test code = BA%) 0.4 % 0.0-2.0 N NUCLEATED RBC % (test code = 0.0 % 0-0 N NRBC%) NEUTROPHIL # (test code = NT#) 10.54 x10 3/uL 2.0-7.6 H IMMATURE GRANULOCYTE # (test 0.11 x10 3/uL 0.00-0.03 H code = IG#) LYMPHOCYTE # (test code = LY#) 1.80 x10 3/uL 1.0-3.8 N MONOCYTE # (test code = MO#) 0.90 x10 3/uL 0.1-0.8 H EOSINOPHIL # (test code = EO#) 0.18 x10 3/uL 0.0-0.2 N BASOPHIL # (test code = BA#) 0.05 x10 3/uL 0.0-0.2 N NUCLEATED RBC # (test code = 0.00 x10 3/uL 0.0-0.1 N NRBC#) MANUAL DIFF REQUIRED (test NO code = MDIFF)
--- NOTE | 2022-05-30 18:24 | RAD REPORT ---
EXAM DESCRIPTION: RAD - Chest Single View - 05/30/2022 5:50 pm CLINICAL HISTORY: COUGH Chest pain. COMPARISON: No comparisons FINDINGS: Portable technique limits examination quality. The lungs are grossly clear. The heart is normal in size. No displaced fractures. IMPRESSION: No acute intrathoracic process suspected.
[2022-05-31 02:33] VITALS: TEMP 97.9
[2022-05-31 02:36] VITALS: BP 141/92; O2SAT 100
--- NOTE | 2022-05-31 10:26 | ER ---
Nurse's Notes [facility] Name: Penny Hylton Age: 31 yrs Sex: Female : 1990 Arrival Date: 05/30/2022 Time: 15:53 Bed 24 Private MD: Dayron Goins Diagnosis: Cough Presentation: 05/30 16:10 Chief complaint: Patient states: My doctor sent me for a chest x ray because i have ld1 been coughing so bad from COVID. Coronavirus screen: Client presents with at least one sign or symptom that may indicate coronavirus-19. Standard/surgical mask placed on the client. Ebola Screen: No symptoms or risks identified at this time. Initial Sepsis Screen: Does the patient meet any 2 criteria? No. Patient's initial sepsis screen is negative. Does the patient have a suspected source of infection? No. Patient's initial sepsis screen is negative. Risk Assessment: Do you want to hurt yourself or someone else? Patient reports no desire to harm self or others. Onset of symptoms was May 30, 2022. 16:10 Method Of Arrival: Ambulatory ld1 16:10 Acuity: JACQUIE 3 ld1 Triage Assessment: 16:12 General: Appears in no apparent distress. uncomfortable, Behavior is appropriate for ld1 age. Pain: Denies pain. EENT: No signs and/or symptoms were reported regarding the EENT system. Neuro: Level of Consciousness is awake, alert, obeys commands, Oriented to person, place, time, situation. Cardiovascular: Capillary refill is > 3 seconds Patient's skin is warm and dry. Respiratory: Airway is patent Respiratory effort is even, unlabored. GI: Abdomen is round non-distended. : No signs and/or symptoms were reported regarding the genitourinary system. Derm: No signs and/or symptoms reported regarding the dermatologic system. Musculoskeletal: No signs and/or symptoms reported regarding the musculoskeletal system. 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 - Social history:: Smoking status: Patient denies any tobacco usage or history of. Patient/guardian denies using alcohol. Screenin:03 Abuse screen: Denies threats or abuse. Denies injuries from another. Nutritional julian screening: No deficits noted. Tuberculosis screening: No symptoms or risk factors identified. Fall Risk None identified. Assessment: 19:03 General: Appears in no apparent distress. Behavior is calm, cooperative. Pain: julian Complains of pain in chest. Cardiovascular: Reports chest pain, shortness of breath. Respiratory: Reports shortness of breath cough that is Breath sounds are clear bilaterally. 19:17 Reassessment: Patient appears in no apparent distress at this time. Patient and/or jb4 family updated on plan of care and expected duration. Pain level reassessed. Patient is alert, oriented x 3, equal unlabored respirations, skin warm/dry/pink. Patient states feeling better. Vital Signs: 16:10 BP 151 / 96; Pulse 115; Resp 18; Temp 97.9(TE); Pulse Ox 96% on R/A; Weight 103.42 kg; ld1 Height 5 ft. 5 in. (165.10 cm); Pain 0/10; 19:17 BP 141 / 92; Pulse 95; Resp 16; Pulse Ox 100% on R/A; jb4 16:10 Body Mass Index 37.94 (103.42 kg, 165.10 cm) ld1 ED Course: 15:53 Patient arrived in ED. mr 15:53 Dayron Goins MD is Private Physician. mr 15:55 [facility] jl9 15:55 Jose Enrique Franklin MD is Attending Physician. jl9 16:12 Triage completed. ld1 16:12 Arm band placed on right wrist. ld1 17:08 Gretel Abbott, RENETTA is Primary Nurse. julian 17:34 SARS RAPID Sent. kj1 17:51 XRAY Chest (1 view) In Process Unspecified. EDMS 19:03 Patient has correct armband on for positive identification. Bed in low position. julian 19:03 No provider procedures requiring assistance completed. julian 19:17 Patient did not have IV access during this emergency room visit. jb4 Administered Medications: No medications were administered Medication: 19:04 VIS not applicable for this client. julian Outcome: 19:08 Discharge ordered by MD. jackson 19:17 Discharged to home ambulatory. jb4 19:17 Condition: stable 19:17 Discharge instructions given to patient, Instructed on discharge instructions, follow up and referral plans. medication usage, Demonstrated understanding of instructions, follow-up care, medications, Prescriptions given X 1. 19:17 Patient left the ED. jb4 Signatures: Dispatcher [employer] [facility] Vibha Corona Kranthi Swift RN RENETTA [email or web address] Lesley Mathis1 Darcie Amezquita RN RN oriana1 Gretel Abbott RN RN ha Linares, John jl9 Corrections: (The following items were deleted from the chart) 16:13 16:12 Home Meds: None; ld1 ld1
--- NOTE | 2022-05-31 10:27 | EDPHYS ---
Physician Documentation [facility] Name: Penny Hylton Age: 31 yrs Sex: Female : 1990 Arrival Date: 05/30/2022 Time: 15:53 Bed 24 Private MD: Dayron Goins ED Physician Jose Enrique Franklin HPI: 05/30 17:16 This 31 yrs old Female presents to ER via Ambulatory with complaints of jl9 Cough, Congestion. 17:16 Onset: The symptoms/episode began/occurred 2 week(s) ago. Modifying factors: The jl9 symptoms are alleviated by nothing, the symptoms are aggravated by. The patient has experienced a previous episode. The patient has been recently seen by a physician: the patient's primary care provider. Patient diagnosed with COVID on 05/18/2022 and still has lingering symptoms. . 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 - Social history:: Smoking status: Patient denies any tobacco usage or history of. Patient/guardian denies using alcohol. ROS: 17:17 Constitutional: Negative for fever, chills, and weight loss, Eyes: Negative for injury, jl9 pain, redness, and discharge, ENT: Negative for injury, pain, and discharge, Neck: Negative for injury, pain, and swelling, Cardiovascular: Negative for chest pain, palpitations, and edema. 17:17 Abdomen/GI: Negative for abdominal pain, nausea, vomiting, diarrhea, and constipation, Back: Negative for injury and pain, : Negative for injury, bleeding, discharge, and swelling, MS/Extremity: Negative for injury and deformity, Skin: Negative for injury, rash, and discoloration, Neuro: Negative for headache, weakness, numbness, tingling, and seizure, Psych: Negative for depression, anxiety, suicide ideation, homicidal ideation, and hallucinations, Allergy/Immunology: Negative for hives, rash, and allergies, Endocrine: Negative for neck swelling, polydipsia, polyuria, polyphagia, and marked weight changes, Hematologic/Lymphatic: Negative for swollen nodes, abnormal bleeding, and unusual bruising. 17:17 Respiratory: Positive for cough, "sounds productive". Exam: 17:18 Constitutional: This is a well developed, well nourished patient who is awake, alert, jl9 and in no acute distress. Head/Face: Normocephalic, atraumatic. Eyes: Pupils equal round and reactive to light, extra-ocular motions intact. Lids and lashes normal. Conjunctiva and sclera are non-icteric and not injected. Cornea within normal limits. Periorbital areas with no swelling, redness, or edema. ENT: Mucous membranes moist. Neck: Trachea midline, no thyromegaly or masses palpated, and no cervical lymphadenopathy. Supple, full range of motion without nuchal rigidity, or vertebral point tenderness. No Meningismus. Chest/axilla: Normal chest wall appearance and motion. Nontender with no deformity. No lesions are appreciated. Cardiovascular: Regular rate and rhythm with a normal S1 and S2. No gallops, murmurs, or rubs. Normal PMI, no JVD. No pulse deficits. 17:18 Abdomen/GI: Soft, non-tender, with normal bowel sounds. No distension or tympany. No guarding or rebound. No evidence of tenderness throughout. Back: No spinal tenderness. No costovertebral tenderness. Full range of motion. Skin: Warm, dry with normal turgor. Normal color with no rashes, no lesions, and no evidence of cellulitis. MS/ Extremity: Pulses equal, no cyanosis. Neurovascular intact. Full, normal range of motion. Neuro: Awake and alert, GCS 15, oriented to person, place, time, and situation. Cranial nerves II-XII grossly intact. Motor strength 5/5 in all extremities. Sensory grossly intact. Cerebellar exam normal. Normal gait. Psych: Awake, alert, with orientation to person, place and time. Behavior, mood, and affect are within normal limits. 17:18 Respiratory: Breath sounds: + upper airway congestion. Vital Signs: 16:10 BP 151 / 96; Pulse 115; Resp 18; Temp 97.9(TE); Pulse Ox 96% on R/A; Weight 103.42 kg; ld1 Height 5 ft. 5 in. (165.10 cm); Pain 0/10; 19:17 BP 141 / 92; Pulse 95; Resp 16; Pulse Ox 100% on R/A; jb4 16:10 Body Mass Index 37.94 (103.42 kg, 165.10 cm) ld1 MDM: 17:04 Patient medically screened. jl9 17:19 Data reviewed: vital signs, nurses notes. jl9 19:07 Special discussion: Discussed findings and plan of care with patient. Patient agrees to jl9 follow up with PCP in 1-2 days. . 05/30 16:14 Order name: XRAY Chest (1 view); Complete Time: 19:04 jl9 Administered Medications: No medications were administered Disposition Summary: 05/30/22 19:08 Discharge Ordered Location: Home jl9 Condition: Stable jl9 Diagnosis - Cough jl9 Followup: jl9 - With: Private Physician - When: 1 - 2 days - Reason: Recheck today's complaints, Continuance of care, Re-evaluation by your physician Discharge Instructions: - Discharge Summary Sheet jl9 - Cough, Adult, [id number] jl9 Forms: - Medication Reconciliation Form jl9 - Thank You Letter jl9 - Antibiotic Education jl9 - Prescription Opioid Use jl9 Prescriptions: - promethazine 6.25 mg/5 mL Oral Syrup - take 10 milliliters by ORAL route every 6 hours As needed; 100 milliliter; jl9 Refills: 0, Product Selection Permitted Signatures: Dispatcher [employer] Darcie Malhotra RN RN ld1 Hollis Tejada jl9 Corrections: (The following items were deleted from the chart) 16:13 16:12 Home Meds: None; ld1 ld1
== END 2022-05-30 19:17 | disposition home or self-care (01) ==
LOC: ER 15:51
DX: R05.9 Cough, unspecified (principal); I10 Essential (primary) hypertension
CPT/HCPCS: 71045

== ENCOUNTER 2024-07-14 14:49 | Emergency (ER) | payer OTHER ==
--- OUTSIDE RECORDS SUMMARY | 2024-07-14 14:54 | XMS REPORT | Continuity of Care Document ---
Author Name Unknown Address [address] [facility]. [address] [place] [address] [facility] Address [address] [facility] [place] [address] Care Team Providers Care Electronics Manufacturer Name Role Phone Harjit Rod Attending Clinician UnaGeneva Burrell Attending Clinician Juana Enamorado Attending Clinician Unava ilHarjit Pierre Admitting Clinician Unacristian ilkaya Physician, No Primary or Family Admitting Clinic ester Unavailable Payers Payer Name Policy Type Policy Number Effective Date Expirati on Date Source Allergies, Adverse Reactions, Alerts Allergy Name Allergy Type Status Severity Reaction(s) Onset Date Inactive Date Treating Clinician Comments Source No Known Allergie s DA Active U 06-03 00:00: 00 [facility] No Known Allergie s DA Active U 06-03 00:00: 00 [facility] No Known Allergie s DA Active U 03-30 00:00: 00 [facility] No Known Allergie s DA Active U 03-30 00:00: 00 [facility] No Known Allergie s DA Active U 02-22 00:00: 00 [facility] No Known Allergie s DA Active U 02-22 00:00: 00 [facility] Procedures Procedure Date / Time Performed Performing Clinicia n Source [id number] 2020-06-23 00:00:00 [facility] Encounters Start Date/Time End Date/Time Encounter Type Admission Type Attending Clinicians Care Facility Care Department Encounter ID Source 2020-07-08 07:15:00 Inpatient Harjit Pérez [facility] OUTD [id number] [facility] 2020-06-20 01:00:00 Inpatient Geneva Falcon [facility] EMILIE [id number] [facility] 2020-06-03 12:08:00 Inpatient Harjit Rod [facility] EMILIE [id number] [facility] 2020-03-30 15:12:00 Inpatient Juana Dunaway [facility] EMILIE [id number] [facility] 2020-06-11 12:13:00 2020-06-11 12:13:00 Outpatient Harjit Pérez [facility] OUTD [id number] [facility] 2020-05-28 12:45:00 2020-05-28 12:45:00 Outpatient Harjit Mcduffie [facility] EMILIE [id number] [facility] Results Test Description Test Time Test Comments Results Result Co mments Source COMPREHENSIVE METABOLIC [id number] 05:33:00* Test Item Value Reference Range Interpretation Comme nts SODIUM (test code = NA) 137 mEq/L 134-147 N POTASSIUM (test code = K) 3.8 mEq/L 3.4-5.0 N CHLORIDE (test code = CL) 106 mEq/L 100-108 N CARBON DIOXIDE (test code = CO2) 20 mEq/L 21-33 L ANION GAP (test code = GAP) 15 0-20 N GLUCOSE (test code = GLU) 87 mg/dL 70-110 N BLOOD UREA NITROGEN (test code = BUN) 7 mg/dL 7-18 N GLOMERULAR FILTRATION RATE (test code = GFR) 119.9 110-120 N Units of measure = ml/min/1.73 m2 CREATININE (test code = CREAT) 0.6 mg/dL 0.6-1.3 N TOTAL PROTEIN (test code = PROT) 5.0 g/dL 6.4-8.2 L ALBUMIN (test code = ALB) 2.30 g/dL 3.4-5.0 L CALCIUM (test code = CA) 8.3 mg/dL 8.0-10.5 N BILIRUBIN TOTAL (test code = BILT) 0.30 mg/dL 0.0-1.0 N SGOT/AST (test code = AST) 16 IUnit/L 15-37 N SGPT/ALT (test code = ALT) 11 IUnit/L 30-65 L ALKALINE PHOSPHATASE TOTAL (test code = ALKP) 105 IUnit/L 20-125 N RAPID PLASMA [id number] 10:18:00* Test Item Value Reference Range Interpretation Comme nts RAPID PLASMA REAGIN (test co de = RPR) NONREACTIVE NONREACTIVE AG HEPATITIS B [id number] 10:18:00* Test Item Value Reference Range Interpretation Comme nts AG HEPATITIS B SURFACE (test code = HBSAG) NON REACTIVE INDEX NonReactive AB HIV 1 10:18:00* Test Item Value Reference Range Interpretation Comme nts AB HIV 1 2 (test code = [id number]) NONREACTIVE INDEX NONREACTIVE COVID 19 Asymptomatic IH [id number] 15:55:00* Test Item Value Reference Range Interpretation Comme nts COVID 19 Asymptomatic IH AG (test code = COVNONPUIAG) Negative Negative A negative resul t is presumptive and should be confirmedwith an FDA authorized molecular assay, if necessary forpatient management.A positive result does not rule out co-infections withother pathogens.This test detects both viable (live) and non-viable,SARS-CoV, and SARS-CoV-2. Test performance depends on theamount of virus (antigen) in the sample.This test has not been FDA cleared or approved; the test hasbeen authorized by FDA under an Emergency Use Authorization(EUA) for use by laboratories certified under the CLIA thatmeet the requirements to perform moderate, high or waivedcomplexity tests. RAPID PLASMA [id number] 13:09:00* Test Item Value Reference Range Interpretation Comme nts RAPID PLASMA REAGIN (test code = RPR) NONREACTI VE AG HEPATITIS B [id number] 13:09:00* Test Item Value Reference Range Interpretation Comme nts AG HEPATITIS B SURFACE (test code = HBSAG) NON REACTIVE INDEX NonReactive AB HIV 1 13:09:00* Test Item Value Reference Range Interpretation Comme nts AB HIV 1 2 (test code = [id number]) NONREACTIVE INDEX NONREACTIVE CBC W/AUTO [id number] 12:07:00* Test Item Value Reference Range Interpretation Comme nts WHITE BLOOD CELL (test code = WBC) 9.48 x10 3/uL 4.5-11.0 N RED BLOOD CELL (test code = RBC) 3.94 x10 6/uL 3.54-5.02 N HEMOGLOBIN (test code = HGB) 11.0 g/dL 11.0-15.0 N HEMATOCRIT (test code = HCT) 35.9 % 33.0-45.0 N MEAN CELL VOLUME (test code = MCV) 91.1 fL 81.0-99.0 N MEAN CELL HGB (test code = MCH) 27.9 pg 27.0-33.0 N MEAN CELL HGB CONCETRATION (test code = MCHC) 30.6 g/dL 33.0-37.0 L RED CELL DISTRIBUTION WIDTH CV (test code = RDW) 14.6 % 11.5-14.5 H RED CELL DISTRIBUTION WIDTH SD (test code = RDW-SD) 47.9 fL 37.0-54.0 N PLATELET COUNT (test code = PLT) 275 x10 3/uL 150-400 N MEAN PLATELET VOLUME (test c ode = MPV) 11.6 fL 7.0-9.0 H NEUTROPHIL % (test code = NT%) 74.8 % 56.0-77.0 N IMMATURE GRANULOCYTE % (test code = IG%) 0.9 % 0.0-2.0 N LYMPHOCYTE % (test code = LY%) 17.1 % 14.0-32.0 N MONOCYTE % (test code = MO%) 6.3 % 4.8-9.0 N EOSINOPHIL % (test code = EO%) 0.6 % 0.3-3.7 N BASOPHIL % (test code = BA%) 0.3 % 0.0-2.0 N NUCLEATED RBC % (test code = NRBC%) 0.0 % 0-0 N NEUTROPHIL # (test code = NT#) 7.08 x10 3/uL 2.0-7.6 N IMMATURE GRANULOCYTE # (test code = IG#) 0.09 x10 3/uL 0.00-0.03 H LYMPHOCYTE # (test code = LY#) 1.62 x10 3/uL 1.0-3.8 N MONOCYTE # (test code = MO#) 0.60 x10 3/uL 0.1-0.8 N EOSINOPHIL # (test code = EO#) 0.06 x10 3/uL 0.0-0.2 N BASOPHIL # (test code = BA#) 0.03 x10 3/uL 0.0-0.2 N NUCLEATED RBC # (test code = NRBC#) 0.00 x10 3/uL 0.0-0.1 N MANUAL DIFF REQUIRED (test c ode = MDIFF) NO URINALYSIS [id number] 02:42:00* Test Item Value Reference Range Interpretation Comme nts UA COLOR (test code = COLU) YELLOW YEL/STRAW UA APPEARANCE (test code = APPU) CLEAR CLEAR UA GLUCOSE DIPSTICK (test co de = DGLUU) NEGATIVE NEGATIVE UA BILIRUBIN DIPSTICK (test code = BILU) NEGATIVE NEGATIVE UA KETONE DIPSTICK (test cod e = KETU) NEGATIVE NEGATIVE UA SPECIFIC GRAVITY (test co de = SGU) 1.023 1.005-1.030 N UA BLOOD DIPSTICK (test code = BRODERICK) 2+ NEGATIVE A UA PH DIPSTICK (test code = ZINA) 6.0 5.0-7.0 N UA PROTEIN DIPSTICK (test co de = PROU) 1+ NEGATIVE A UA UROBILINIOGEN DIPSTICK (t est code = URO) 0.2 mg/dL 0.2-1.0 UA NITRITE DIPSTICK (test co de = DEJUAN) NEGATIVE NEGATIVE UA LEUKOCYTE ESTERASE DIPSTI CK (test code = LEUU) NEGATIVE NEGATIVE UA RBC (test code = RBCU) >50 RBC/HPF 0-3 A UA WBC NO REFLEX (test code = WBCUCL) 4-9 WBC/HPF 0-3 A UA BACTERIA (test code = BACU) 2+ /HPF NONE SEEN A UA SQUAMOUS CELLS (test code = SQU) 0-5 /HPF NONE SEEN UA CALCIUM OXALATE CRYSTALS (test code = CAOXU) TRACE /HPF NONE SEEN UA MUCUS (test code = MUCU) 2+ /LPF NONE SEEN A UR PROTEIN/CREATININE [id number] 02:42:00* Test Item Value Reference Range Interpretation Comme nts UR PROTEIN RANDOM (test code = PROTU) 27 mg/dL Note: Radha nge in UNITS of MEASUREMENT. The Reference Range and Method Performance specificationshave not been established for this fluid. The test resultshould be correlated into the clinical context forinterpretation. UR CREATININE RANDOM (test code = CREATU) 160.8 mg/dL The Reference Ra nge and Method Performance specificationshave not been established for this fluid. The test resultshould be correlated into the clinical context forinterpretation. PROTEIN/CREATININ E RATIO (test code = P/CRATIO) 0.17 COMPREHENSIVE METABOLIC [id number] 02:15:00* Test Item Value Reference Range Interpretation Comme nts SODIUM (test code = NA) 138 mEq/L 134-147 N POTASSIUM (test code = K) 3.7 mEq/L 3.4-5.0 N CHLORIDE (test code = CL) 108 mEq/L 100-108 N CARBON DIOXIDE (test code = CO2) 20 mEq/L 21-33 L ANION GAP (test code = GAP) 13 0-20 N GLUCOSE (test code = GLU) 88 mg/dL 70-110 N BLOOD UREA NITROGEN (test code = BUN) 10 mg/dL 7-18 N GLOMERULAR FILTRATION RATE (test code = GFR) 100.4 110-120 L Units of measure = ml/min/1.73 m2 CREATININE (test code = CREAT) 0.7 mg/dL 0.6-1.3 N TOTAL PROTEIN (test code = PROT) 5.6 g/dL 6.4-8.2 L ALBUMIN (test code = ALB) 2.80 g/dL 3.4-5.0 L CALCIUM (test code = CA) 8.7 mg/dL 8.0-10.5 N BILIRUBIN TOTAL (test code = BILT) 0.30 mg/dL 0.0-1.0 N SGOT/AST (test code = AST) 12 IUnit/L 15-37 L SGPT/ALT (test code = ALT) 8 IUnit/L 30-65 L ALKALINE PHOSPHATASE TOTAL (test code = ALKP) 130 IUnit/L 20-125 H URIC [id number] 02:15:00* Test Item Value Reference Range Interpretation Comme nts URIC ACID (test code = URIC) 5.5 mg/dL 2.6-7.2 N LACTIC DEHYDROGENASE(LDH)2020-06-20 02:15:00* Test Item Value Reference Range Interpretation Comme nts LACTIC DEHYDROGENASE(LDH) (t est code = LDH) 138 IUnits/L 84-246 N URINALYSIS [id number] 02:14:00* Test Item Value Reference Range Interpretation Comme nts UA COLOR (test code = COLU) YEL/STRAW UA APPEARANCE (test code = APPU) CLEAR UA GLUCOSE DIPSTICK (test co de = DGLUU) NEGATIVE UA BILIRUBIN DIPSTICK (test code = BILU) NEGATIVE UA KETONE DIPSTICK (test code = KETU) NEGATIVE UA SPECIFIC GRAVITY (test code = SGU) 1.005-1.0 30 UA BLOOD DIPSTICK (test code = BRODERICK) NEGATIVE UA PH DIPSTICK (test code = ZINA) 5.0-7.0 UA PROTEIN DIPSTICK (test co de = PROU) NEGATIVE UA UROBILINIOGEN DIPSTICK (t est code = URO) mg/dL 0.2-1.0 UA NITRITE DIPSTICK (test co de = DEJUAN) NEGATIVE UA LEUKOCYTE ESTERASE DIPSTI CK (test code = LEUU) NEGATIVE UA RBC (test code = RBCU) RBC/HPF 0-3 UR PROTEIN/CREATININE [id number] 02:14:00* Test Item Value Reference Range Interpretation Comme nts UR PROTEIN RANDOM (test code = PROTU) 27 mg/dL Note: Radha nge in UNITS of MEASUREMENT. The Reference Range and Method Performance specificationshave not been established for this fluid. The test resultshould be correlated into the clinical context forinterpretation. UR CREATININE RANDOM (test code = CREATU) 160.8 mg/dL The Reference Ra nge and Method Performance specificationshave not been established for this fluid. The test resultshould be correlated into the clinical context forinterpretation. PROTEIN/CREATININ E RATIO (test code = P/CRATIO) 0.17 CBC W/AUTO [id number] 01:59:00* Test Item Value Reference Range Interpretation Comme nts WHITE BLOOD CELL (test code = WBC) 9.90 x10 3/uL 4.5-11.0 N RED BLOOD CELL (test code = RBC) 3.71 x10 6/uL 3.54-5.02 N HEMOGLOBIN (test code = HGB) 10.5 g/dL 11.0-15.0 L HEMATOCRIT (test code = HCT) 33.4 % 33.0-45.0 N MEAN CELL VOLUME (test code = MCV) 90.0 fL 81.0-99.0 N MEAN CELL HGB (test code = MCH) 28.3 pg 27.0-33.0 N MEAN CELL HGB CONCETRATION (test code = MCHC) 31.4 g/dL 33.0-37.0 L RED CELL DISTRIBUTION WIDTH CV (test code = RDW) 14.4 % 11.5-14.5 N RED CELL DISTRIBUTION WIDTH SD (test code = RDW-SD) 46.5 fL 37.0-54.0 N PLATELET COUNT (test code = PLT) 269 x10 3/uL 150-400 N MEAN PLATELET VOLUME (test c ode = MPV) 11.2 fL 7.0-9.0 H NEUTROPHIL % (test code = NT%) 71.7 % 56.0-77.0 N IMMATURE GRANULOCYTE % (test code = IG%) 0.7 % 0.0-2.0 N LYMPHOCYTE % (test code = LY%) 17.8 % 14.0-32.0 N MONOCYTE % (test code = MO%) 8.1 % 4.8-9.0 N EOSINOPHIL % (test code = EO%) 1.3 % 0.3-3.7 N BASOPHIL % (test code = BA%) 0.4 % 0.0-2.0 N NUCLEATED RBC % (test code = NRBC%) 0.0 % 0-0 N NEUTROPHIL # (test code = NT#) 7.10 x10 3/uL 2.0-7.6 N IMMATURE GRANULOCYTE # (test code = IG#) 0.07 x10 3/uL 0.00-0.03 H LYMPHOCYTE # (test code = LY#) 1.76 x10 3/uL 1.0-3.8 N MONOCYTE # (test code = MO#) 0.80 x10 3/uL 0.1-0.8 N EOSINOPHIL # (test code = EO#) 0.13 x10 3/uL 0.0-0.2 N BASOPHIL # (test code = BA#) 0.04 x10 3/uL 0.0-0.2 N NUCLEATED RBC # (test code = NRBC#) 0.00 x10 3/uL 0.0-0.1 N MANUAL DIFF REQUIRED (test c ode = MDIFF) NO COVID 19 Asymptomatic IH [id number] 15:46:00* Test Item Value Reference Range Interpretation Comme nts COVID 19 Asymptomatic IH AG (test code = COVNONPUIAG) Negative Negative A negative resul t is presumptive and should be confirmedwith an FDA authorized molecular assay, if necessary forpatient management.A positive result does not rule out co-infections withother pathogens.This test detects both viable (live) and non-viable,SARS-CoV, and SARS-CoV-2. Test performance depends on theamount of virus (antigen) in the sample.This test has not been FDA cleared or approved; the test hasbeen authorized by FDA under an Emergency Use Authorization(EUA) for use by laboratories certified under the CLIA thatmeet the requirements to perform moderate, high or waivedcomplexity tests. COMMENTS: OB ELEVATED BP- US PREG AFTER [id number] 15:21:00Name: HARINDERPENNY [facility] : 1990 Age/S: 29 / F [address] [place] [address] Unit #: [id number] Loc: [place] [address] Phys: Harjit Rod MD Acct: [id number] Dis Date: Status: ADM IN PHONE #: [phone] Exam Date: 06/03/2020 1508 FAX #: [phone] Reason: COMPLTE OB, ELEVATED BP EXAMS: CPT CODE: [id number] US PREG AFTER 49983 PROCEDURE: OBSTETRICAL ULTRASOUND INDICATION: Elevated blood pressure. EGA 34 weeks 0 days COMPARISON: There are no previous relevant studies available for correlation. TECHNIQUE: Obstetrical ultrasound is performed with grayscale and M-mode imaging. LIMITATIONS: positioning. FINDINGS: There is a single living intrauterine fetusin cephalic presentation. Limited assessment of anatomy without abnormality demonstrated. Theplacenta is posterior grade 2 with no evidence [...] vessel Spine long: Yes Spine transverse: Yes Stomach: Yes Bladder: Yes Kidneys: Yes Extremities: Limited Amniotic Fluid: Yes Uterus/Cervix/Adnexa: Clinical: LMP= MA= 34wks 0days Ultrasound: MA= 34 wks 2 days BPD: 8.5 cm 34 weeks 1 days HC: 32.1 cm 36 weeks 1 days AC: 29.6 cm 33 weeks 4 days FL: 6.5 cm 33 weeks 3 days Ratios Ratio Range HC/AC 1.08 0.96- 1.14 FL/AC 21.9 20.00-24.00 PAGE 1 Signed Report (CONTINUED) Name: PENNY PIZANO [facility] : 1990 Age/S: 29 / F [address] [place] [address] Unit #: [id number] Loc: [place] [address] Phys: Harjit Rod MD Acct: [id number] Dis Date: Status: ADM IN PHONE #: [phone] Exam Date: 06/03/2020 1506 FAX #: [phone] Reason: COMPLTE OB, ELEVATED BP EXAMS: CPT CODE: [id number] US PREG AFTER 1ST TRI 33426 (Continued) FL/BPD 76.48 71.0-87.0 EFW: 2296 +/- 344 gm LMP%: 39.4 ADALID: 8.6 cm S/D Ratio: 3.3 IMPRESSION: 1. Single living intrauterine fetus in cephalic presentation at an estimated gestational age of 34 weeks 2 days. 2. Estimated weight is at the 39th percentile. 3. Cord Doppler ratio mildly elevated. SL: PIPER at 1521 Reported and signed by: Luis Larsen M.D. CC: Harjit Rod Technologist: Lorin Linda RDMS()(RCT) Trnscb Date/Time: 06/03/2020 (152) Mayra Orig Print D/T: S: 06/03/2020 (1524) Probe: PAGE 2 Signed ReportCOMPREHENSIVE METABOLIC PANEL 2020-06-03 14:05:00* Test Item Value Reference Range Interpretation Comme nts SODIUM (test code = NA) 137 mEq/L 134-147 N POTASSIUM (test code = K) 3.9 mEq/L 3.4-5.0 N CHLORIDE (test code = CL) 109 mEq/L 100-108 H CARBON DIOXIDE (test code = CO2) 21 mEq/L 21-33 N ANION GAP (test code = GAP) 11 0-20 N GLUCOSE (test code = GLU) 70 mg/dL 70-110 N BLOOD UREA NITROGEN (test code = BUN) 11 mg/dL 7-18 N GLOMERULAR FILTRATION RATE (test code = GFR) 148.0 110-120 H Units of measure = ml/min/1.73 m2 CREATININE (test code = CREAT) 0.5 mg/dL 0.6-1.3 L TOTAL PROTEIN (test code = PROT) 7.0 g/dL 6.4-8.2 N ALBUMIN (test code = ALB) 2.70 g/dL 3.4-5.0 L CALCIUM (test code = CA) 9.3 mg/dL 8.0-10.5 N BILIRUBIN TOTAL (test code = BILT) 0.2 MG/DL <1.5 N SGOT/AST (test code = AST) 13 IUnit/L 15-37 L SGPT/ALT (test code = ALT) 18 IUnit/L 15-65 N ALKALINE PHOSPHATASE TOTAL (test code = ALKP) 120 IUnit/L 20-125 N URIC [id number] 14:05:00* Test Item Value Reference Range Interpretation Comme nts URIC ACID (test code = URIC) 4.9 mg/dL 2.6-7.2 N LACTIC DEHYDROGENASE(LDH)2020-06-03 14:05:00* Test Item Value Reference Range Interpretation Comme nts LACTIC DEHYDROGENASE(LDH) (t est code = LDH) 160 IUnits/L 84-246 N CBC W/AUTO [id number] 13:49:00* Test Item Value Reference Range Interpretation Comme nts WHITE BLOOD CELL (test code = WBC) 10.43 x10 3/uL 4.5-11.0 N RED BLOOD CELL (test code = RBC) 3.99 x10 6/uL 3.54-5.02 N HEMOGLOBIN (test code = HGB) 11.3 g/dL 11.0-15.0 N HEMATOCRIT (test code = HCT) 35.4 % 33.0-45.0 N MEAN CELL VOLUME (test code = MCV) 88.7 fL 81.0-99.0 N MEAN CELL HGB (test code = MCH) 28.3 pg 27.0-33.0 N MEAN CELL HGB CONCETRATION (test code = MCHC) 31.9 g/dL 33.0-37.0 L RED CELL DISTRIBUTION WIDTH CV (test code = RDW) 13.2 % 11.5-14.5 N RED CELL DISTRIBUTION WIDTH SD (test code = RDW-SD) 42.8 fL 37.0-54.0 N PLATELET COUNT (test code = PLT) 294 x10 3/uL 150-400 N MEAN PLATELET VOLUME (test code = MPV) 11.2 fL 7.0-9.0 H NEUTROPHIL % (test code = NT%) 76.9 % 56.0-77.0 N IMMATURE GRANULOCYTE % (test code = IG%) 1.1 % 0.0-2.0 N LYMPHOCYTE % (test code = LY%) 13.7 % 14.0-32.0 L MONOCYTE % (test code = MO%) 7.2 % 4.8-9.0 N EOSINOPHIL % (test code = EO%) 0.8 % 0.3-3.7 N BASOPHIL % (test code = BA%) 0.3 % 0.0-2.0 N NUCLEATED RBC % (test code = NRBC%) 0.0 % 0-0 N NEUTROPHIL # (test code = NT#) 8.03 x10 3/uL 2.0-7.6 H IMMATURE GRANULOCYTE # (test code = IG#) 0.11 x10 3/uL 0.00-0.03 H LYMPHOCYTE # (test code = LY#) 1.43 [...] DIFF REQUIRED (test code = MDIFF) NO URINALYSIS [id number] 13:34:00* Test Item Value Reference Range Interpretation Comme nts UA COLOR (test code = COLU) YELLOW YEL/STRAW UA APPEARANCE (test code = APPU) CLEAR CLEAR UA GLUCOSE DIPSTICK (test co de = DGLUU) NEGATIVE NEGATIVE UA BILIRUBIN DIPSTICK (test code = BILU) NEGATIVE NEGATIVE UA KETONE DIPSTICK (test cod e = KETU) NEGATIVE NEGATIVE UA SPECIFIC GRAVITY (test co de = SGU) 1.015 1.005-1.030 N UA BLOOD DIPSTICK (test code = BRODERICK) 3+ NEGATIVE A UA PH DIPSTICK (test code = ZINA) 6.0 5.0-7.0 N UA PROTEIN DIPSTICK (test co de = PROU) NEGATIVE NEGATIVE UA UROBILINIOGEN DIPSTICK (t est code = URO) 0.2 mg/dL 0.2-1.0 UA NITRITE DIPSTICK (test co de = DEJUAN) NEGATIVE NEGATIVE UA LEUKOCYTE ESTERASE DIPSTI CK (test code = LEUU) NEGATIVE NEGATIVE UA RBC (test code = RBCU) >50 RBC/HPF 0-3 A UA WBC NO REFLEX (test code = WBCUCL) 4-9 WBC/HPF 0-3 A UA BACTERIA (test code = BACU) 4+ /HPF NONE SEEN A UA SQUAMOUS CELLS (test code = SQU) 0-5 /HPF NONE SEEN UA MUCUS (test code = MUCU) 1+ /LPF NONE SEEN UR PROTEIN [id number] 15:54:00* Test Item Value Reference Range Interpretation Comme nts UR PROTEIN RANDOM (test code = PROTU) 21 mg/dL Note: Radha nge in UNITS of MEASUREMENT. The Reference Range and Method Performance specificationshave not been established for this fluid. The test resultshould be correlated into the clinical context forinterpretation. UR PROTEIN 24HR (test code = VHUS62O) 304 MG/24HR 0-150 UR VOLUME (test code = VOL) 1450 mL UR PROTEIN [id number] 15:44:00* Test Item Value Reference Range Interpretation Comme nts UR PROTEIN RANDOM (test code = PROTU) mg/dL UR VOLUME (test code = VOL) 1450 mL COMPREHENSIVE METABOLIC [id number] 14:33:00* Test Item Value Reference Range Interpretation Comme nts SODIUM (test code = NA) 138 mEq/L 134-147 N POTASSIUM (test code = K) 4.2 mEq/L 3.4-5.0 N CHLORIDE (test code = CL) 108 mEq/L 100-108 N CARBON DIOXIDE (test code = CO2) 25 mEq/L 21-33 N ANION GAP (test code = GAP) 9 0-20 N GLUCOSE (test code = GLU) 73 mg/dL 70-110 N BLOOD UREA NITROGEN (test code = BUN) 11 mg/dL 7-18 N GLOMERULAR FILTRATION RATE (test code = GFR) 100.4 110-120 L Units of measure = ml/min/1.73 m2 CREATININE (test code = CREAT) 0.7 mg/dL 0.6-1.3 N TOTAL PROTEIN (test code = PROT) 7.0 g/dL 6.4-8.2 N ALBUMIN (test code = ALB) 2.80 g/dL 3.4-5.0 L CALCIUM (test code = CA) 9.3 mg/dL 8.0-10.5 N BILIRUBIN TOTAL (test code = BILT) 0.3 MG/DL <1.5 N SGOT/AST (test code = AST) 15 IUnit/L 15-37 N SGPT/ALT (test code = ALT) 20 IUnit/L 15-65 N ALKALINE PHOSPHATASE TOTAL (test code = ALKP) 117 IUnit/L 20-125 N URIC [id number] 14:33:00* Test Item Value Reference Range Interpretation Comme nts URIC ACID (test code = URIC) 4.8 mg/dL 2.6-7.2 N LACTIC DEHYDROGENASE(LDH)2020-05-28 14:33:00* Test Item Value Reference Range Interpretation Comme nts LACTIC DEHYDROGENASE(LDH) (t est code = LDH) 167 IUnits/L 84-246 N AMNISURE (ROM) [id number] 14:12:00* Test Item Value Reference Range Interpretation Comme nts AMNISURE (ROM) TEST (test co de = AMNI) NEGATIVE NEGATIVE URINALYSIS [id number] 14:04:00* Test Item Value Reference Range Interpretation Comme nts UA COLOR (test code = COLU) YELLOW YEL/STRAW UA APPEARANCE (test code = APPU) CLEAR CLEAR UA GLUCOSE DIPSTICK (test co de = DGLUU) NEGATIVE NEGATIVE UA BILIRUBIN DIPSTICK (test code = BILU) NEGATIVE NEGATIVE UA KETONE DIPSTICK (test cod e = KETU) NEGATIVE NEGATIVE UA SPECIFIC GRAVITY (test co de = SGU) 1.017 1.005-1.030 N UA BLOOD DIPSTICK (test code = BRODERICK) 2+ NEGATIVE A UA PH DIPSTICK (test code = ZINA) 6.0 5.0-7.0 N UA PROTEIN DIPSTICK (test co de = PROU) NEGATIVE NEGATIVE UA UROBILINIOGEN DIPSTICK (t est code = URO) 0.2 mg/dL 0.2-1.0 UA NITRITE DIPSTICK (test co de = DEJUAN) NEGATIVE NEGATIVE UA LEUKOCYTE ESTERASE DIPSTI CK (test code = LEUU) NEGATIVE NEGATIVE UA RBC (test code = RBCU) 21-50 RBC/HPF 0-3 UA WBC NO REFLEX (test code = WBCUCL) 4-9 WBC/HPF 0-3 A UA BACTERIA (test code = BACU) 4+ /HPF NONE SEEN A UA SQUAMOUS CELLS (test code = SQU) 0-5 /HPF NONE SEEN UA MUCUS (test code = MUCU) 1+ /LPF NONE SEEN CBC W/AUTO [id number] 13:53:00* Test Item Value Reference Range Interpretation Comme nts WHITE BLOOD CELL (test code = WBC) 11.25 x10 3/uL 4.5-11.0 H RED BLOOD CELL (test code = RBC) 3.91 x10 6/uL 3.54-5.02 N HEMOGLOBIN (test code = HGB) 11.0 g/dL 11.0-15.0 N HEMATOCRIT (test code = HCT) 35.1 % 33.0-45.0 N MEAN CELL VOLUME (test code = MCV) 89.8 fL 81.0-99.0 N MEAN CELL HGB (test code = MCH) 28.1 pg 27.0-33.0 N MEAN CELL HGB CONCETRATION (test code = MCHC) 31.3 g/dL 33.0-37.0 L RED CELL DISTRIBUTION WIDTH CV (test code = RDW) 13.1 % 11.5-14.5 N RED CELL DISTRIBUTION WIDTH SD (test code = RDW-SD) 42.6 fL 37.0-54.0 N PLATELET COUNT (test code = PLT) 316 x10 3/uL 150-400 N MEAN PLATELET VOLUME (test code = MPV) 11.0 fL 7.0-9.0 H NEUTROPHIL % (test code = NT%) 76.0 % 56.0-77.0 N IMMATURE GRANULOCYTE % (test code = IG%) 0.6 % 0.0-2.0 N LYMPHOCYTE % (test code = LY%) 14.7 % 14.0-32.0 N MONOCYTE % (test code = MO%) 7.6 % 4.8-9.0 N EOSINOPHIL % (test code = EO%) 0.7 % 0.3-3.7 N BASOPHIL % (test code = BA%) 0.4 % 0.0-2.0 N NUCLEATED RBC % (test code = NRBC%) 0.0 % 0-0 N NEUTROPHIL # (test code = NT#) 8.56 x10 3/uL 2.0-7.6 H IMMATURE GRANULOCYTE # (test code = IG#) 0.07 x10 3/uL 0.00-0.03 H LYMPHOCYTE # (test code = LY#) 1.65 [...] DIFF REQUIRED (test code = MDIFF) NO CBC W/AUTO [id number] 13:51:00* Test Item Value Reference Range Interpretation Comme nts WHITE BLOOD CELL (test code = WBC) x10 3/uL 4.5-11.0 RED BLOOD CELL (test code = RBC) x10 6/uL 3.54-5.02 HEMOGLOBIN (test code = HGB) 11.0 g/dL 11.0-15.0 N HEMATOCRIT (test code = HCT) 35.1 % 33.0-45.0 N MEAN CELL VOLUME (test code = MCV) fL 81.0-99.0 MEAN CELL HGB (test code = MCH) pg 27.0-33.0 MEAN CELL HGB CONCETRATION ( test code = MCHC) g/dL 33.0-37.0 RED CELL DISTRIBUTION WIDTH CV (test code = RDW) % 11.5-14.5 PLATELET COUNT (test code = PLT) 316 x10 3/uL 150-400 N NEUTROPHIL % (test code = NT%) % 56.0-77.0 LYMPHOCYTE % (test code = LY%) % 14.0-32.0 NEUTROPHIL # (test code = NT#) x10 3/uL 2.0-7.6 LYMPHOCYTE # (test code = LY#) x10 3/uL 1.0-3.8 MANUAL DIFF REQUIRED (test c ode = MDIFF) URINALYSIS [id number] 16:36:00* Test Item Value Reference Range Interpretation Comme nts UA COLOR (test code = COLU) YELLOW YEL/STRAW UA APPEARANCE (test code = APPU) CLEAR CLEAR UA GLUCOSE DIPSTICK (test co de = DGLUU) NEGATIVE NEGATIVE UA BILIRUBIN DIPSTICK (test code = BILU) NEGATIVE NEGATIVE UA KETONE DIPSTICK (test cod e = KETU) NEGATIVE NEGATIVE UA SPECIFIC GRAVITY (test co de = SGU) 1.015 1.005-1.030 N UA BLOOD DIPSTICK (test code = BRODERICK) NEGATIVE NEGATIVE UA PH DIPSTICK (test code = ZINA) 6.0 5.0-7.0 N UA PROTEIN DIPSTICK (test co de = PROU) NEGATIVE NEGATIVE UA UROBILINIOGEN DIPSTICK (t est code = URO) 0.2 mg/dL 0.2-1.0 UA NITRITE DIPSTICK (test co de = DEJUAN) NEGATIVE NEGATIVE UA LEUKOCYTE ESTERASE DIPSTI CK (test code = LEUU) NEGATIVE NEGATIVE UA RBC (test code = RBCU) 4-10 RBC/HPF 0-3 UA WBC NO REFLEX (test code = WBCUCL) 0-3 WBC/HPF 0-3 UA BACTERIA (test code = BACU) 4+ /HPF NONE SEEN A UA SQUAMOUS CELLS (test code = SQU) 0-5 /HPF NONE SEEN UA MUCUS (test code = MUCU) TRACE /LPF NONE SEEN UA AMORPHOUS SEDIMENT (test code = AMORU) TRACE /HPF NONE UR PROTEIN/CREATININE [id number] 16:36:00* Test Item Value Reference Range Interpretation Comme nts UR PROTEIN RANDOM (test code = PROTU) 11 mg/dL Note: Radha nge in UNITS of MEASUREMENT. The Reference Range and Method Performance specificationshave not been established for this fluid. The test resultshould be correlated into the clinical context forinterpretation. UR CREATININE RANDOM (test code = CREATU) 102.0 mg/dL The Reference Ra nge and Method Performance specificationshave not been established for this fluid. The test resultshould be correlated into the clinical context forinterpretation. PROTEIN/CREATININ E RATIO (test code = P/CRATIO) 0.11 COMPREHENSIVE METABOLIC [id number] 16:35:00* Test Item Value Reference Range Interpretation Comme nts SODIUM (test code = NA) 138 mEq/L 134-147 N POTASSIUM (test code = K) 3.7 mEq/L 3.4-5.0 N CHLORIDE (test code = CL) 108 mEq/L 100-108 N CARBON DIOXIDE (test code = CO2) 24 mEq/L 21-33 N ANION GAP (test code = GAP) 10 0-20 N GLUCOSE (test code = GLU) 89 mg/dL 70-110 N BLOOD UREA NITROGEN (test code = BUN) 8 mg/dL 7-18 N GLOMERULAR FILTRATION RATE (test code = GFR) 119.9 110-120 N Units of measure = ml/min/1.73 m2 CREATININE (test code = CREAT) 0.6 mg/dL 0.6-1.3 N TOTAL PROTEIN (test code = PROT) 6.7 g/dL 6.4-8.2 N ALBUMIN (test code = ALB) 2.50 g/dL 3.4-5.0 L CALCIUM (test code = CA) 8.8 mg/dL 8.0-10.5 N BILIRUBIN TOTAL (test code = BILT) 0.2 MG/DL <1.5 N SGOT/AST (test code = AST) 10 IUnit/L 15-37 L SGPT/ALT (test code = ALT) 23 IUnit/L 15-65 N ALKALINE PHOSPHATASE TOTAL (test code = ALKP) 109 IUnit/L 20-125 N URIC [id number] 16:35:00* Test Item Value Reference Range Interpretation Comme nts URIC ACID (test code = URIC) 4.0 mg/dL 2.6-7.2 N LACTIC DEHYDROGENASE(LDH)2020-03-30 16:35:00* Test Item Value Reference Range Interpretation Comme nts LACTIC DEHYDROGENASE(LDH) (t est code = LDH) 152 IUnits/L 84-246 N URINALYSIS [id number] 16:34:00* Test Item Value Reference Range Interpretation Comme nts UA COLOR (test code = COLU) YEL/STRAW UA APPEARANCE (test code = APPU) CLEAR UA GLUCOSE DIPSTICK (test co de = DGLUU) NEGATIVE UA BILIRUBIN DIPSTICK (test code = BILU) NEGATIVE UA KETONE DIPSTICK (test code = KETU) NEGATIVE UA SPECIFIC GRAVITY (test code = SGU) 1.005-1.0 30 UA BLOOD DIPSTICK (test code = BRODERICK) NEGATIVE UA PH DIPSTICK (test code = ZINA) 5.0-7.0 UA PROTEIN DIPSTICK (test co de = PROU) NEGATIVE UA UROBILINIOGEN DIPSTICK (t est code = URO) mg/dL 0.2-1.0 UA NITRITE DIPSTICK (test co de = DEJUAN) NEGATIVE UA LEUKOCYTE ESTERASE DIPSTI CK (test code = LEUU) NEGATIVE UA RBC (test code = RBCU) RBC/HPF 0-3 UR PROTEIN/CREATININE [id number] 16:34:00* Test Item Value Reference Range Interpretation Comme nts UR PROTEIN RANDOM (test code = PROTU) 11 mg/dL Note: Radha nge in UNITS of MEASUREMENT. The Reference Range and Method Performance specificationshave not been established for this fluid. The test resultshould be correlated into the clinical context forinterpretation. UR CREATININE RANDOM (test code = CREATU) 102.0 mg/dL The Reference Ra nge and Method Performance specificationshave not been established for this fluid. The test resultshould be correlated into the clinical context forinterpretation. PROTEIN/CREATININ E RATIO (test code = P/CRATIO) 0.11 CBC W/AUTO [id number] 16:20:00* Test Item Value Reference Range Interpretation Comme nts WHITE BLOOD CELL (test code = WBC) 13.58 x10 3/uL 4.5-11.0 H RED BLOOD CELL (test code = RBC) 3.87 x10 6/uL 3.54-5.02 N HEMOGLOBIN (test code = HGB) 11.4 g/dL 11.0-15.0 N HEMATOCRIT (test code = HCT) 34.9 % 33.0-45.0 N MEAN CELL VOLUME (test code = MCV) 90.2 fL 81.0-99.0 N MEAN CELL HGB (test code = MCH) 29.5 pg 27.0-33.0 N MEAN CELL HGB CONCETRATION (test code = MCHC) 32.7 g/dL 33.0-37.0 L RED CELL DISTRIBUTION WIDTH CV (test code = RDW) 13.3 % 11.5-14.5 N RED CELL DISTRIBUTION WIDTH SD (test code = RDW-SD) 43.6 fL 37.0-54.0 N PLATELET COUNT (test code = PLT) 299 x10 3/uL 150-400 N MEAN PLATELET VOLUME (test code = MPV) 10.6 fL 7.0-9.0 H NEUTROPHIL % (test code = NT%) 77.6 % 56.0-77.0 H IMMATURE GRANULOCYTE % (test code = IG%) 0.8 % 0.0-2.0 N LYMPHOCYTE % (test code = LY%) 13.3 % 14.0-32.0 L MONOCYTE % (test code = MO%) 6.6 % 4.8-9.0 N EOSINOPHIL % (test code = EO%) 1.3 % 0.3-3.7 N BASOPHIL % (test code = BA%) 0.4 % 0.0-2.0 N NUCLEATED RBC % (test code = NRBC%) 0.0 % 0-0 N NEUTROPHIL # (test code = NT#) 10.54 x10 3/uL 2.0-7.6 H IMMATURE GRANULOCYTE # (test code = IG#) 0.11 x10 3/uL 0.00-0.03 H LYMPHOCYTE # (test code = LY#) 1.80 [...] DIFF REQUIRED (test code = MDIFF) NO Notes Date/Time Note Provider Source 2020-06-29 09:24:00 [facility]) Anes. Post OB Pain Management REPORT#:[id number] REPORT STATUS: Signed DATE:06/29/20 TIME: 09 PATIENT: PENNY PIZANO UNIT #: [id number] ROOM/BED: [place] [phone] : 92 AGE: 29 SEX: F ATTEND: Harjit Rod MD ADM AUTHOR: Cony Akers MD * ALL edits or amendments must be made on the electronic/computer document * Anes. Post OB Pain Management Anes. Post OB Pain Management Plan: patient seen on 06/24/20 at 7:12 on POD # 1 Chief Complaint: [c section with sab with duramorph] No catheter in place Patient seen and examined Moving legs Current pain scale [2]/10 Pain relieved by [prn pain meds] Current patient activity level [as tolerated] No side effects noted. Further pain control per primary service. at 0925 RPT #:[id number] END OF REPORT [facility] 2020-06-26 07:52:00 [facility] ([facility]) OB Postpart Progr Note REPORT#:[id number] REPORT STATUS: Signed DATE:06/26/20 TIME: 751 PATIENT: PENNY PIZANO UNIT #: [id number] ROOM/BED: [place] [phone] : 92 AGE: 29 SEX: F ATTEND: Harjit Rod MD ADM AUTHOR: Francine Bach MD * ALL edits or amendments must be made on the electronic/computer document * Subjective Subjective Status/Day: post operative (day#2) Patient reports: Patient reports: Yes no complaints, Yes normal lochia, Yes pain management effective, Yes tolerating po well, Yes voiding well, Yes voiding without pain, Yes tolerating ambulation, Yes flatus Objective Nursing Documentation Review Nursing Data: The data set between the solid lines has been imported from nursing documentation. Any exceptions have been noted below under Provider comments. Feeding preference: Provider comments on imported nursing data: [] General VS: Vital Signs: Date Time Temp Pulse Resp B/P B/P Pulse O2 O2 Flow FiO2 Mean Ox Delivery Rate 06/26 0410 91 17 143/72 06/26 0102 98.2 84 16 125/59 06/25 2159 129/61 83 08/28 2159 91 100 06/25 2014 98.6 84 16 163/83 06/25 1527 98.7 83 18 133/63 Patient Weight Weight (lb): Weight (oz): Weight (kg): Physical Exam Neuro: Exam: alert, oriented x3, normal speech Abdomen: soft, no abnormal tenderness, no guarding, no rebound tenderness Incision site: well approximated edges, no drainage, no inflammation Uterus: firm, involution appropriate, non-tender Fundus: firm, below the umbilicus, non-tender Lochia: normal Vulva/Perineum: normal Lower extremities: Edema: none Diagnosis, Assessment Plan Diagnosis, Assessment Plan Assessment: nml progress Plan: routine care, discharge tomorrow Consultation(s): Consultation performed: anesthesia at 0858 RPT #:[id number] END OF REPORT [facility] 2020-06-26 07:52:00 [facility] ([facility]) OB Postpart Progr Note REPORT#:[id number] REPORT STATUS: Signed DATE:06/26/20 TIME: 075 PATIENT: PENNY PIZANO UNIT #: [id number] ROOM/BED: [place] [phone] : 92 AGE: 29 SEX: F ATTEND: Harjit Rod MD ADM AUTHOR: Francine Bach MD * ALL edits or amendments must be made on the electronic/computer document * See Addendum Subjective Subjective Status/Day: post operative (day#2) Patient reports: Patient reports: Yes no complaints, Yes normal lochia, Yes pain management effective, Yes tolerating po well, Yes voiding well, Yes voiding without pain, Yes tolerating ambulation, Yes flatus Objective Nursing Documentation Review Nursing Data: The data set between the solid lines has been imported from nursing documentation. Any exceptions have been noted below under Provider comments. Feeding preference: Provider comments on imported nursing data: [] General VS: Vital Signs: Date Time Temp Pulse Resp B/P B/P Pulse O2 O2 Flow FiO2 Mean Ox Delivery Rate 06/26 0410 91 17 143/72 06/26 0102 98.2 84 16 125/59 06/25 2159 129/61 83 06/25 2159 91 100 06/25 2014 98.6 84 16 163/83 06/25 1527 98.7 83 18 133/63 Patient Weight Weight (lb): Weight (oz): Weight (kg): Physical Exam Neuro: Exam: alert, oriented x3, normal speech Abdomen: soft, no abnormal tenderness, no guarding, no rebound tenderness Incision site: well approximated edges, no drainage, no inflammation Uterus: firm, involution appropriate, non-tender Fundus: firm, below the umbilicus, non-tender Lochia: normal Vulva/Perineum: normal Lower extremities: Edema: none Diagnosis, Assessment Plan Diagnosis, Assessment Plan Assessment: nml progress Plan: routine care, discharge tomorrow Consultation(s): Consultation performed: anesthesia at 0858 Addendum 1: 06/26/20 1223 by Francine Bach MD pt POD #3 from c/s; will discharge home today at 1224 RPT #:[id number] END OF REPORT [facility] 2020-06-25 07:21:00 [facility] ([facility]) OB Disch REPORT#:[id number] REPORT STATUS: Signed DATE:06/25/20 TIME: 720 PATIENT: PENNY PIZANO UNIT #: [id number] ROOM/BED: [place] [phone] : 92 AGE: 29 SEX: F ATTEND: Harjit Rod MD ADM AUTHOR: Harjit Rod MD * ALL edits or amendments must be made on the electronic/computer document * Subjective Subjective Comments: Admit Date: 06/23/2020 Discharge Date: 06/26/2020 Reason for Admission: Planned Repeat Intrauterine at 36.8 weeks. Procedure: Repeat LUT CS Complications: None Discharge Diagnosis: Same Condition: Good Diet: Regular Activity: Pelvic Rest Follow up: 2 Weeks Hospital Course: section diagnosis: 1) Intrauterine at 36.8 weeks. 2) Prior 3) Hypertension The patient had an uncomplicated delivery on 06/23/2020. Her course was unremarkable and she was discharged home on 06/26/2020. Discharge Summary Discharge Summary Hospital course: repeat admit Discharge meds: Continue taking these medications: PNV/FE FUM/FA ( MULTIVITAMIN) 1 TAB TAB 1 TABLET ORAL DAILY. LABETALOL (TRANDATE) 300 MG TAB 300 MILLIGRAM ORAL TWICE DAILY. Start taking the following new medications: ACETAMINOPHEN/CODEINE (TYLENOL WITH CODEINE #3 300/30 MG) 300 MG-30 MG TAB 1 TABLET ORAL EVERY 4 HOURS NEEDED. as needed for pain Qty = 30 Refills = 1 Instructions: FOR ACUTE PAIN at 0722 RPT #:[id number] END OF REPORT [facility] 2020-06-25 07:21:00 [facility] ([facility]) OB Disch REPORT#:[id number] REPORT STATUS: Signed DATE:06/25/20 TIME: 720 PATIENT: PENNY PIZANO UNIT #: [id number] ROOM/BED: [place] [phone] : 92 AGE: 29 SEX: F ATTEND: Harjit Rod MD ADM AUTHOR: Harjit Rod MD * ALL edits or amendments must be made on the electronic/computer document * See Addendum Subjective Subjective Comments: Admit Date: 06/23/2020 Discharge Date: 06/26/2020 Reason for Admission: Planned Repeat Intrauterine at 36.8 weeks. Procedure: Repeat LUT CS Complications: None Discharge Diagnosis: Same Condition: Good Diet: Regular Activity: Pelvic Rest Follow up: 2 Weeks Hospital Course: section diagnosis: 1) Intrauterine at 36.8 weeks. 2) Prior 3) Hypertension The patient had an uncomplicated delivery on 06/23/2020. Her course was unremarkable and she was discharged home on 06/26/2020. Discharge Summary Discharge Summary Hospital course: repeat admit Discharge meds: Continue taking these medications: PNV/FE FUM/FA ( MULTIVITAMIN) 1 TAB TAB 1 TABLET ORAL DAILY. LABETALOL (TRANDATE) 300 MG TAB 300 MILLIGRAM ORAL TWICE DAILY. Start taking the following new medications: ACETAMINOPHEN/CODEINE (TYLENOL WITH CODEINE #3 300/30 MG) 300 MG-30 MG TAB 1 TABLET ORAL EVERY 4 HOURS NEEDED. as needed for pain Qty = 30 Refills = 1 Instructions: FOR ACUTE PAIN at 0722 Addendum 1: 06/26/20 1224 by Francine Bach MD pt discharged home today on 06/26/20 at 1225 RPT #:[id number] END OF REPORT [facility] 2020-06-24 07:09:00 [facility] ([facility]) OB Postpart Progr Note REPORT#:[id number] REPORT STATUS: Signed DATE:06/24/20 TIME: 708 PATIENT: PENNY PIZANO UNIT #: [id number] ROOM/BED: [place] [phone] : 92 AGE: 29 SEX: F ATTEND: Harjit Rod MD ADM AUTHOR: Harjit Rod MD * ALL edits or amendments must be made on the electronic/computer document * Subjective Subjective Comments: Subjective: 29 year old G 5 P 2 A 3 LC 2 Status Post: Repeat LUT CS day: 1 Denies headache, SOB, chest pain, or engorgement. Moderate lochia. Incisional pain well controlled. Objective: CVS: RRR Breasts: No engorgement or signs of mastitis Lungs: Clear Abd: Soft NT no guard or rebound. Normal BS Fundus: Firm NT Incision: bandaged Lochia: Normal 24 hour I O ending at 0700: 06/24 0700 06/23 1900 Intake Total 2500 Output Total 1050 Balance 1450 Intake, Other 2500 Output, Other 1050 Laboratory Tests: 06/24 06/24 06/22 0505 0410 1112 Chemistry Sodium (134 - 147 mEq/L) 137 Potassium (3.4 - 5.0 mEq/L) 3.8 Chloride (100 - 108 mEq/L) 106 Carbon Dioxide (21 - 33 mEq/L) 20 L Anion Gap (0 - 20) 15 BUN (7 - 18 mg/dL) 7 Creatinine (0.6 - 1.3 mg/dL) 0.6 Glomerular Filtr Rate (110 - 120) 119.9 Glucose (70 - 110 mg/dL) 87 Calcium (8.0 - 10.5 mg/dL) 8.3 Total Bilirubin (0.0 - 1.0 mg/dL) 0.30 AST (15 - 37 IUnit/L) 16 ALT (30 - 65 IUnit/L) 11 L Total Alk Phosphatase (20 - 125 IUnit/L) 105 Total Protein (6.4 - 8.2 g/dL) 5.0 L Albumin (3.4 - 5.0 g/dL) 2.30 L Hematology WBC (4.5 - 11.0 x10 3/uL) 12.10 H 9.48 RBC (3.54 - 5.02 x10 6/uL) 3.37 L 3.94 Hgb (11.0 - 15.0 g/dL) 9.5 L 11.0 Hct (33.0 - 45.0 %) 31.3 L 35.9 MCV (81.0 - 99.0 fL) 92.9 91.1 MCH (27.0 - 33.0 pg) 28.2 27.9 MCHC (33.0 - 37.0 g/dL) 30.4 L 30.6 L RDW (11.5 - 14.5 %) 14.9 H 14.6 H Plt Count (150 - 400 x10 3/uL) 256 275 MPV (7.0 - 9.0 fL) 12.3 H 11.6 H Neut % (Auto) (56.0 - 77.0 %) 71.3 74.8 Lymph % (Auto) (14.0 - 32.0 %) 19.7 17.1 [place] % (Auto) (4.8 - 9.0 %) 7.8 6.3 Eos % (Auto) (0.3 - 3.7 %) 0.2 L 0.6 Baso % (Auto) (0.0 - 2.0 %) 0.3 0.3 Neut # (Auto) (2.0 - 7.6 x10 3/uL) 8.64 H 7.08 Lymph # (Auto) (1.0 - 3.8 x10 3/uL) 2.38 1.62 [place] # (Auto) (0.1 - 0.8 x10 3/uL) 0.94 H 0.60 Eos # (Auto) (0.0 - 0.2 x10 3/uL) 0.02 0.06 Baso # (Auto) (0.0 - 0.2 x10 3/uL) 0.04 0.03 Abs Immat Gran (auto) (0.00 - 0.03 x10 3/uL) 0.08 H 0.09 H Add Manual Diff NO NO Immature Gran % (0.0 - 2.0 %) 0.7 0.9 Nucleated RBC % (0 - 0 %) 0.0 0.0 Nucleated RBCs # (Man) (0.0 - 0.1 x10 3/uL) 0.00 0.00 Serology RPR (NONREACTIVE) NONREACTIVE Hep Bs Antigen (NonReactive INDEX) NON REACTIVE HIV 1 2 Antibody (NONREACTIVE INDEX) NONREACTIVE 06/22 0730 Serology SARS-CoV-2 Ag (Rapid) (Negative) Negative Active Meds + DC'd Last 24 Hrs Acetaminophen SEE admin criteria Q6H PO Hydrocodone Bitart/Acetaminophen 0 Q6H PRN PRN PO Ibuprofen 800 MG Q8H PO Diphenhydramine HCl 25 MG Q6H PRN PRN PO Oxycodone HCl 5 MG Q4H PRN PRN PO Docusate Sodium 100 MG BID PO Ferrous Sulfate 325 MG DAILY PO Labetalol HCl 300 MG BID PO Vit/Iron/Folic Ac/DSS/DHA 1 CAP DAILY PO Ketorolac Tromethamine 0 .STK-MED ONE .ROUTE (DC) Acetaminophen 650 MG Q6H PO (DC) Diphenhydramine HCl 12.5 MG Q6H PRN PRN IV Diphtheria/Tetanus/Acell Pertussis 0.5 ML ASDIR IM Hydroxyzine HCl 25 MG Q6H PRN PRN PO Ketorolac Tromethamine 30 MG Q6H IV Lactated Ringer's 1,000 ML .Q12H3M IV Measles/Mumps/Rubella Vaccine Live 1 VIAL ASDIR SUBQ Naloxone HCl 0.4 MG ASDIR PRN IV (CKD) Naloxone HCl 0.2 MG ASDIR PRN IV (CKD) Ondansetron HCl 4 MG PACU ONCE ONE IV (DC) Ondansetron HCl 4 MG Q4H PRN PRN IV Ondansetron HCl 4 MG Q8H PRN PRN PO Oxytocin 168 ML .Q4H IV (DC) Promethazine HCl 12.5 MG Q4H PRN PRN IM Simethicone 80 MG Q2H PRN PRN PO Sodium Chloride 10 ML ASDIR IV Bupivacaine HCl/Dextrose 0 .STK-MED ONE I-SPINAL (DC) Morphine Sulfate 0 .STK-MED ONE .ROUTE (DC) Acetaminophen 1,000 MG PREOP ONCALL PO (DC) Carboprost Tromethamine 250 MCG ONCE PRN IM (DC) Cefazolin Sodium 2 GM PREOP ONCALL IV (DC) Citric Acid/Sodium Citrate 30 ML PREOP ONCALL PO (DC) Famotidine 20 MG PREOP ONCALL IV (DC) Lactated Ringer's 2,000 ML BOLUS ASDIR PRN IV (DC) Lactated Ringer's 1,000 ML .Q8H IV (DC) Methylergonovine Maleate 0.2 MG ONCE PRN IM (DC) Metoclopramide HCl 10 MG PREOP ONCALL IV (DC) Misoprostol 800 MCG ONCE PRN RECTAL (DC) Oxytocin 333.33 ML BOLUS PRN IV (DC) Scopolamine 1 PATCH PREOP ONCALL TRANSDERM (DC) Sodium Chloride 20 ML ASDIR IV (DC) Vital Signs: Date Time Temp Pulse Resp B/P B/P Pulse O2 O2 Flow FiO2 Mean Ox Delivery Rate 06/24 0605 68 18 100 06/24 0511 65 18 100 06/24 0400 97.9 57 18 125/70 100 06/24 0310 55 18 97 06/24 0214 64 18 97 06/24 0120 57 17 96 08 0001 97.9 55 18 125/74 98 06/23 2305 60 18 98 06/23 2200 61 18 98 06/23 2105 61 18 99 06/23 2025 97.8 60 18 128/71 100 06/23 1900 60 18 96 06/23 1715 62 18 99 06/23 1610 60 18 98 06/23 1510 97.8 57 17 117/56 97 06/23 1430 59 18 99 06/23 1334 64 18 99 06/23 1230 62 18 98 06/23 1145 98.1 58 18 137/72 99 06/23 1027 107.0 06/23 1027 56 145/79 06/23 1024 57 99 06/23 1019 58 98 06/23 1014 55 99 06/23 1012 101.0 06/23 1012 51 140/76 06/23 1009 57 100 06/23 1004 55 100 06/23 0959 51 99 06/23 0957 101.0 06/23 0957 56 139/75 06/23 0954 58 100 06/23 0949 55 99 06/23 0944 55 100 06/23 0942 105.0 06/23 0942 59 143/79 06/23 0939 54 98 06/23 0934 60 99 06/23 0929 53 100 06/23 0927 104.0 06/23 0927 71 141/78 06/23 0924 52 100 06/23 0919 50 100 06/23 0914 57 96 06/23 0912 108.0 06/23 0912 50 151/80 06/23 0909 50 100 06/23 0904 51 100 06/23 0859 54 99 06/23 0857 109.0 06/23 0857 48 150/81 06/23 0854 49 100 06/23 0849 50 100 06/23 0844 50 100 06/23 0842 115.0 06/23 0842 51 154/89 06/23 0839 57 100 06/23 0834 60 100 06/23 0829 50 100 06/23 0825 117.0 06/23 08 97.6 56 22 161/88 100 Assessment: day: 1 Repeat LUT CS Plan: BRIANNA Sanchez Decrease IVF to 50cc/hr Advance Diet as Tolerated OOB TID with assistance at 0710 RPT #:[id number] END OF REPORT [facility] 2020-06-23 07:27:00 [facility] ([facility]) OB Delivery Note REPORT#:[id number] REPORT STATUS: Signed DATE:06/23/20 TIME: 726 PATIENT: PENNY PIZANO UNIT #: [id number] ROOM/BED: [place] [phone] : 92 AGE: 29 SEX: F ATTEND: Harjit Rod MD ADM AUTHOR: Harjit Rod MD * ALL edits or amendments must be made on the electronic/computer document * OB Delivery Blood Loss/Details Blood loss at delivery: no more than expected at 0727 RPT #:[id number] END OF REPORT [facility] 2020-06-23 07:27:00 [facility] ([facility]) OB Delivery Note REPORT#:[id number] REPORT STATUS: Signed DATE:06/23/20 TIME: 726 PATIENT: PENNY PIZANO UNIT #: [id number] [place] [facility] [place] AGE: 29 SEX: F ATTEND: Harjit Rod MD ADM AUTHOR: Harjit Rod MD * ALL edits or amendments must be made on the electronic/computer document * See Addendum OB Delivery Blood Loss/Details Blood loss at delivery: no more than expected at 0727 Addendum 1: 06/23/20 1218 by Harjit Rod MD 06/23/2020 Delivery Note 29 year old G 5 P 2 A 3 delivery at 36.8 weeks by Harjit Rod MD at [facility]. Rupture of Membranes: 06/23/2020 at 7:47 AM. Color: Clear. Membranes Ruptured for 0 hours. Delivery time: 7:47 am : Male (Ra) Weight: 2820g [6 lbs 3.4 oz] born by Repeat LUT CS. Data: Apgars: 6, 8 Position: OA. Nuchal cord: No. 3 vessel cord. Monitors: Heart Rate: External Uterine Contractions: External Tracing: Cat 1. Placenta: intact Anesthesia: Spinal Estimated Blood Loss: 600 cc. Patient was accompanied by her . at 1218 RPT #:[id number] END OF REPORT [facility] 2020-06-23 07:26:00 [facility] Operative Note REPORT#:[id number] REPORT STATUS: Signed DATE:06/23/20 TIME: 725 PATIENT: PENNY PIZANO UNIT #: [id number] ROOM/BED: [place] [phone] : 92 AGE: 29 SEX: F ATTEND: Harjit Rod MD ADM AUTHOR: Harjit Rod MD * ALL edits or amendments must be made on the electronic/computer document * at 0726 RPT #:[id number] END OF REPORT [facility] 2020-06-23 07:26:00 [facility] ([facility]) Operative Note REPORT#:[id number] REPORT STATUS: Signed DATE:06/23/20 TIME: 725 PATIENT: PENNY PIZANO UNIT #: [id number] ROOM/BED: [place] [phone] : 92 AGE: 29 SEX: F ATTEND: Harjit Rod MD ADM AUTHOR: Harjit Rod MD * ALL edits or amendments must be made on the electronic/computer document * See Addendum at 0726 Addendum 1: 06/23/20 1219 by Harjit Rod MD Date: 06/23/2020 Pre-op Diagnosis: 1) Intrauterine at 36.8 weeks. 2) Prior 3) Hypertension Post-op Diagnosis: 1) Intrauterine at 36.8 weeks. 2) Prior 3) Hypertension Procedure Performed: Repeat Low Uterine Transverse Section Surgeon: Harjit Rod MD Scaler: Jose GRECO Anesthesia: Spinal Estimated Blood Loss: 600cc Findings: Rupture of Membranes: 06/23/2020 at 7:47 AM. Color: Clear. Membranes Ruptured for 0 hours. Delivery time: 7:47 am Infant: Male (Ra) Weight: 2820g [6 lbs 3.4 oz] Data: Apgars: 6, 8 Position: OA. Nuchal cord: No. 3 vessel cord. Monitors: Heart Rate: External Uterine Contractions: External Tracing: Cat 1. Placenta: intact Patient was accompanied by her . [facility] recommended delivery Procedure in Detail: The patient was taken to the operating room and placed in the supine position and prepped and draped in the usual sterile fashion. A time out was performed. A Pfannenstiel skin incision was created and bleeders were coagulated. The fascia was incised and dissected from the underlying rectus muscle. The peritoneal cavity was entered and a bladder blade was placed. A bladder flap was created and the uterus was incised in a low transverse manner. The infant was delivered without difficulty and handed to nursery personnel in attendance. The placenta was manually extracted and the cavity was cleansed with a wet lap. The hysterotomy was closed with a running 0 chromic suture. Interrupted figure of eight 0 chromic suture was used as needed to ensure hemostasis., An interceed was placed over the hysterotomy and the rectus was reapproximated. The fascia was closed with a running 0 PDS. The skin was closed with subcuticular monocryl and the wound was dressed with an occlusive bandage. All counts were correct. The patient went to recovery in good condition. The print shop assistant surgeon was critically important for retraction and visualization for the procedure and provided fundal pressure that was needed to expel the . at 1220 RPT #:[id number] END OF REPORT [facility] 2020-06-23 07:25:00 [facility] OB Admission / H P REPORT#:[id number] REPORT STATUS: Signed DATE:06/23/20 TIME: 724 PATIENT: PENNY PIZANO UNIT #: [id number] ROOM/BED: [place] [id number] : [birth year] AGE: 29 SEX: F ATTEND: Harjit Rod MD ADM AUTHOR: Harjit Rod MD * ALL edits or amendments must be made on the electronic/computer document * OB Admission H P Hx Allergies Coded Allergies: No Known Allergies (06/03/20) Diagnosis, Assessment Plan Diagnosis, Assessment Plan Comments: 06/23/2020 Penny Pizano is a 29 year old G 5 P 1 A 3 LC 1 with a working EDC of 07/15/2020. This makes her 36.8 weeks today. Reason for Admission: Planned Repeat per MFM No Contractions Good Movement No Vaginal Bleeding No Fever No Rupture of Membranes Prior Obstetrical History: 03/11/2016: 40wks 11.7hr 3950 Male Primary LUT CS CCL PIH. FTP Prior Medical History: Urinary Tract Infection Pyelonephritis Gallstones Panic Attacks Hyperthyroidism Depression Prior Surgical History: 2016 Medications: Vitamins, Baby ASA qd , labetalol 300mg BID Allergies: NKDA Social: ETOH: No Tobacco: No Drugs: No STDs: Chlamydia Occupation: [employer] with Harjit Rod MD Since: 11/21/2019 Number of visits: 15 Hgb: 12 Hct: 38 Rubella: Immune Blood Type: B Pos AB Screen: Neg RPR: Neg HBsAg: Neg HIV: Neg TSH: 2.71 Pap Smear: Negative GC Culture: Neg CT Culture: Neg Urine Cx: Negative ProGenity negative XY. NT 1.6 Late Labs: Hgb: 11 Hct: 33 50 3 hr GTT: 96/183/158/83 RHIG: Not indicated GBS: Neg (06/15/2020) Ultrasound Data: 11/28/2019 (6.5) @ [facility] EDC: 07/19/2020 Single Intrauterine Gestation with Cardiac Activity. 02/16/2020 (18.5) @ [facility] EDC: 07/15/2020 Normal Anatomy left CREDIT NEGOTIATOR Pl: post 04/05/2020 (25.1) @ [facility] EDC: 07/18/2020 Normal Anatomy 783g 30% Pl: llat 05/28/2020 (32.8) @ [facility]: 07/17/2020 Normal Anatomy 2113g 45% Pl: post fundal 06/16/2020 (35.2) @ [facility] ED[facility]: 07/19/2020 Normal Anatomy 2637g 37% Pl: post Misc: 12/15/2019 SMA: Negative. Fragile X: Negative 12/26/2019 24 hr urine protein 259mg 04/23/2020 Late HIV: neg. TSH 1.80 05/06/2020 hgba1c 5.6 05/28/2020 24 hr urine 304 mg ptn Flu Shot: Not Indicated TDAP: Given (04/23/2020) Problem List: Urinary Tract Infection, Pyelonephritis, Gallstones, Panic Attacks, Hyperthyroidism, Depression, History of STD: Chlamydia, Genetic Risk: Habitual , Prior Pre-eclampsia, Prior Delivery, High BMI (41.5), Elevated Second Trimester Glucola, Gestational Diabetes, Isolated CREDIT NEGOTIATOR Physical Exam: Appearance: WDWD NAD Last Documented: Result Date Time Temp 98.2 06/23 0545 B/P Mean 118.0 06/23 0541 B/P 157/92 06/23 0541 Pulse 70 06/23 0541 HEENT: NC/AT no Abnormalities Neck: Supple No JVD Chest: Clear to auscultation CVS: RRR no MRG Abd: Gravid NT Tracing: Category 1 Labs: Laboratory Tests: 06/22 06/22 1112 0730 Hematology WBC (4.5 - 11.0 x10 3/uL) 9.48 RBC (3.54 - 5.02 x10 6/uL) 3.94 Hgb (11.0 - 15.0 g/dL) 11.0 Hct (33.0 - 45.0 %) 35.9 MCV (81.0 - 99.0 fL) 91.1 MCH (27.0 - 33.0 pg) 27.9 MCHC (33.0 - 37.0 g/dL) 30.6 L RDW (11.5 - 14.5 %) 14.6 H Plt Count (150 - 400 x10 3/uL) 275 MPV (7.0 - 9.0 fL) 11.6 H Neut % (Auto) (56.0 - 77.0 %) 74.8 Lymph % (Auto) (14.0 - 32.0 %) 17.1 [place] % (Auto) (4.8 - 9.0 %) 6.3 Eos % (Auto) (0.3 - 3.7 %) 0.6 Baso % (Auto) (0.0 - 2.0 %) 0.3 Neut # (Auto) (2.0 - 7.6 x10 3/uL) 7.08 Lymph # (Auto) (1.0 - 3.8 x10 3/uL) 1.62 [place] # (Auto) (0.1 - 0.8 x10 3/uL) 0.60 Eos # (Auto) (0.0 - 0.2 x10 3/uL) 0.06 Baso # (Auto) (0.0 - 0.2 x10 3/uL) 0.03 Abs Immat Gran (auto) (0.00 - 0.03 x10 3/uL) 0.09 H Add Manual Diff NO Immature Gran % (0.0 - 2.0 %) 0.9 Nucleated RBC % (0 - 0 %) 0.0 Nucleated RBCs # (Man) (0.0 - 0.1 x10 3/uL) 0.00 Serology Hep Bs Antigen (NonReactive INDEX) NON REACTIVE HIV 1 2 Antibody (NONREACTIVE INDEX) NONREACTIVE SARS-CoV-2 Ag (Rapid) (Negative) Negative Assessment: 36.8 week IUP admitted for Planned Repeat Plan: repeat CS at 0726 RPT #:[id number] END OF REPORT [facility] 2020-06-20 02:02:00 [facility] ([facility]) OB Triage Visit REPORT#:[id number] REPORT STATUS: Signed DATE:06/20/20 TIME: 0202 PATIENT: PENNY PIZANO UNIT #: [id number] ROOM/BED: [address]: [address] AGE: 29 SEX: F ATTEND: Geneva Falcon MD ADM DT: AUTHOR: Geneva Falcon MD * ALL edits or amendments must be made on the electronic/computer document * Subjective Subjective Patient reports: elevated bp at home History Nursing Documentation Review Nursing data: The data set between the solid lines has been imported from nursing documentation. Any exceptions have been noted below under Provider comments. Current data Steroids prior to arrival: ROM date: ROM time: EGA (weeks/days): EGA at admit (weeks): EDC date: Prior history : Para: Term: : Abortions spontaneous: Abortions induced: Living children: Ectopic: Stillbirths: Live births: deaths: Number of previous C/S: Reported maternal labs/data Blood type: Rh type: Rubella: Hepatitis B: HIV exposure test: VDRL: Group B beta strep: Rho(D) immune globulin this preg: Monitor mode - UA: Feeding preference: Provider comments on imported nursing data: [] Chief complaint Chief complaint: evaluated for superimposed preeclampsia HPI: 29 yo at 36.6 with CHTN comes in due to elevated bp at home approx 160/ 90 and headache. She did not try to take anything for the headache at home. She has taken her 9pm dose of labetolol. States she has had occassional visual disturbances for the past three weeks of wavy vision, occassional dark and then light spots. No other PIH symptoms. Good fm. No vb/lof. Rare ctx. history: : 4 Term: 1 : 0 Abortus: 2 Living children: 1 Complications (prev preg): preeclampsia Previous : unknown uterine incision Number of prev : 1 Current Current : EDC: 07/15/20 EGA (weeks/days): 36.6 Conditions of : previous uterine incision, gestational diabetes, chronic HTN Past history Past medical history: hypertension Past surgical history: Social history: no alcohol use, no tobacco use, no drug use Allergies Coded Allergies: No Known Allergies (06/03/20) Review of Systems Constitutional: Denies: chills, fever. Respiratory: Denies: non productive cough, productive cough (sputum), SOB. Cardiovascular: Denies: chest pain, edema. GI: Denies: nausea, vomiting. : Reports: . Denies: vaginal bleeding, vaginal discharge. Neuro: headache, vision change. Denies: dizziness. Objective General VS: Last Documented: Result Date Time B/P Mean 104.0 06/20 0155 B/P 143/78 06/20 0155 Pulse 70 06/20 0155 Vital Signs Date Temp Pulse Resp B/P B/P Mean Pulse Ox FiO2 06/20 65-71 126-148/77-86 97.0-111.0 Patient Weight Weight (lb): Weight (oz): Weight (kg): Notes: Gen: well appearing gravid female in NAD Pulm: nl respiratory effort Abd: NT gravid soft Ext: -C/C/E DTR +1 no clonus Physical Exam: Uterine activity: Monitor: toco Frequency (description): none heart rate pattern: category I Diagnosis, Assessment Plan Diagnosis, Assessment Plan Free text A P: A/P at 36.3 weeks with CHTN and GDM with elevated bp at home Awaiting PIH labs, BP better here tylenol given for headache at 0210 RPT #:[id number] END OF REPORT [facility] 2020-06-03 12:50:00 [facility] ([facility]) OB Admission / H P REPORT#:[id number] REPORT STATUS: Signed DATE:06/03/20 TIME: 1250 PATIENT: PENNY PIZANO UNIT #: [id number] ROOM/BED: : 92 AGE: 29 SEX: F ATTEND: Harjit Rod MD ADM DT: AUTHOR: Harjit Rod MD * ALL edits or amendments must be made on the electronic/computer document * OB Admission H P Hx Allergies Coded Allergies: No Known Allergies (06/03/20) Diagnosis, Assessment Plan Diagnosis, Assessment Plan Comments: 06/03/2020 Penny Pizano is a 29 year old G 5 P 1 A 3 LC 1 with a working EDC of 07/15/2020. This makes her 34 weeks today. Reason for Admission: Possible Pre-eclampsia Prior Obstetrical History: 03/11/2016: 40wks 11.7hr 3950 Male Primary LUT CS CCL PIH. FTP Prior Medical History: Urinary Tract Infection Pyelonephritis Gallstones Panic Attacks Hyperthyroidism Depression Prior Surgical History: 2016 Medications: Vitamins, Baby ASA qd , labetalol 300mg BID Allergies: NKDA Social: ETOH: No Tobacco: No Drugs: No STDs: Chlamydia Occupation: [employer] with Harjit Rod MD Since: 11/21/2019 Number of visits: 11 Hgb: 12 Hct: 38 Rubella: Immune Blood Type: B Pos AB Screen: Neg RPR: Neg HBsAg: Neg HIV: Neg TSH: 2.71 Pap Smear: Negative GC Culture: Neg CT Culture: Neg Urine Cx: Negative ProGenity negative XY. NT 1.6 Late Labs: Hgb: 11 Hct: 33 50 3 hr GTT: 96/183/158/83 RHIG: Not indicated GBS: Unknown or Pending Ultrasound Data: 11/28/2019 (6.5) @ [facility] EDC: 07/19/2020 Single Intrauterine Gestation with Cardiac Activity. 02/16/2020 (18.5) @ [facility]: 07/15/2020 Normal Anatomy left CREDIT NEGOTIATOR Pl: post 04/05/2020 (25.1) @ [facility] EDC: 07/18/2020 Normal Anatomy 783g 30% Pl: llat Misc: 12/15/2019 SMA: Negative. Fragile X: Negative 12/26/2019 24 hr urine protein 259mg 04/23/2020 Late HIV: neg. TSH 1.80 05/06/2020 hgba1c 5.6 05/28/2020 24 hr urine 304 mg ptn Flu Shot: Not Indicated TDAP: Given (04/23/2020) Problem List: Urinary Tract Infection, Pyelonephritis, Gallstones, Panic Attacks, Hyperthyroidism, Depression, History of STD: Chlamydia, Genetic Risk: Habitual , Prior Pre-eclampsia, Prior Delivery, High BMI (41.5), Elevated Second Trimester Glucola, Gestational Diabetes, Isolated CREDIT NEGOTIATOR Physical Exam: Appearance: WDWD NAD see CPN for VS HEENT: NC/AT no Abnormalities Neck: Supple No JVD Chest: Clear to auscultation CVS: RRR no MRG Abd: Gravid NT Assessment: 34 week IUP admitted for Possible Pre-eclampsia Plan: Pre-eclampsia labs Monitoring at 1251 RPT #:[id number] END OF REPORT [facility] 2020-05-28 13:27:00 [facility] ([facility]) OB Admission / H P REPORT#:[id number] REPORT STATUS: Signed DATE:05/28/20 TIME: 1327 PATIENT: PENNY PIZANO UNIT #: [id number] ROOM/BED: [place] [address] : 92 AGE: 29 SEX: F ATTEND: Harjit Rod MD ADM DT: AUTHOR: Harjit Rod MD * ALL edits or amendments must be made on the electronic/computer document * OB Admission H P Hx Allergies Coded Allergies: No Known Allergies (03/30/20) at 1327 RPT #:[id number] END OF REPORT [facility] 2020-05-28 13:27:00 [facility] ([facility]) OB Admission / H P REPORT#:[id number] REPORT STATUS: Signed DATE:05/28/20 TIME: 1327 PATIENT: PENNY PIZANO UNIT #: [id number] ROOM/BED: [place] [address] : 92 AGE: 29 SEX: F ATTEND: Harjit Rod MD ADM DT: AUTHOR: Harjit Rod MD * ALL edits or amendments must be made on the electronic/computer document * See Addendum OB Admission H P Hx Allergies Coded Allergies: No Known Allergies (03/30/20) at 1327 Addendum 1: 05/28/20 1339 by Harjit Rod MD 05/28/2020 Penny Pizano is a 29 year old G 5 P 1 A 3 LC 1 with a working EDC of 07/15/2020. This makes her 33.1 weeks today. Reason for Admission: oligohydramnios/r/o PIH Prior Obstetrical History: 03/11/2016: 40wks 11.7hr 3950 Male Primary LUT CS CCL PIH. FTP Prior Medical History: Urinary Tract Infection Pyelonephritis Gallstones Panic Attacks Hyperthyroidism Depression Prior Surgical History: 2016 Medications: Vitamins, Baby ASA qd , labetalol 300mg BID Allergies: NKDA Social: ETOH: No Tobacco: No Drugs: No STDs: Chlamydia Occupation: [employer] with Harjit Rod MD Since: 11/21/2019 Number of visits: 10 Hgb: 12 Hct: 38 Rubella: Immune Blood Type: B Pos AB Screen: Neg RPR: Neg HBsAg: Neg HIV: Neg TSH: 2.71 Pap Smear: Negative GC Culture: Neg CT Culture: Neg Urine Cx: Negative ProGenity negative XY. NT 1.6 Late Labs: Hgb: 11 Hct: 33 50 3 hr GTT: 96/183/158/83 RHIG: Not indicated GBS: Unknown or Pending Ultrasound Data: 11/28/2019 (6.5) @ [facility] EDC: 07/19/2020 Single Intrauterine Gestation with Cardiac Activity. 02/16/2020 (18.5) @ [facility]: 07/15/2020 Normal Anatomy left CREDIT NEGOTIATOR Pl: post 04/05/2020 (25.1) @ [facility] EDC: 07/18/2020 Normal Anatomy 783g 30% Pl: llat Misc: 12/15/2019 SMA: Negative. Fragile X: Negative 12/26/2019 24 hr urine protein 259mg 04/23/2020 Late HIV: neg. TSH 1.80 05/06/2020 hgba1c 5.6 Flu Shot: Not Indicated TDAP: Given (04/23/2020) Problem List: Urinary Tract Infection, Pyelonephritis, Gallstones, Panic Attacks, Hyperthyroidism, Depression, History of STD: Chlamydia, Genetic Risk: Habitual , Prior Pre-eclampsia, Prior Delivery, High BMI (41.5), Elevated Second Trimester Glucola, Gestational Diabetes, Isolated CREDIT NEGOTIATOR Physical Exam: Appearance: WDWD NAD see CPN VS HEENT: NC/AT no Abnormalities Neck: Supple No JVD Chest: Clear to auscultation CVS: RRR no MRG Abd: Gravid NT Tracing: Category 1 Assessment: 33.1 week IUP admitted for oligohydramnios/r/o PIH Plan: PIH w/u amnisure at 1339 RPT #:[id number] END OF REPORT [facility] 2020-03-30 15:29:00 [facility] ([facility]) EMILIE Evaluation Note REPORT#:[id number] REPORT STATUS: Signed DATE:03/30/20 TIME: 1529 PATIENT: PENNY PIZANO UNIT #: [id number] ROOM/BED: : 92 AGE: 29 SEX: F ATTEND: Juana Dunaway MD ADM DT: AUTHOR: Juana Dunaway MD * ALL edits or amendments must be made on the electronic/computer document * EMILIE History Chief complaint: elevated BP HPI: 29 y/o with a PMHx of CHTN, migranes with an IUP 24 03/04 presents due to elevated BP at home. She also complains of hand nubmness, ankle and hand swelling. She refers good movements and denies any gush of vaginal fluids or vaginal bleeding. Verbal consent obtained from patient to discuss history, lab results, treatment, plan and any other pertinent information in front of patient's companions. history: : 2 Term: 1 Current : EDC: 07/15/20 EGA (weeks/days): 24 weeks Past medical history: CHTN Migranes Past surgical history: Medications: Home Medications: Medication Dose/Rte/Freq Days Qty Entered Last Max Daily Dose Reviewed PNV/FE FUM/FA 1 TAB PO DAILY 01/06/16 ( MULTIVITAMIN) 1706 Strength: 1 TAB TAB LABETALOL (TRANDATE) 300 MG PO BID 03/30/20 Strength: 300 MG TAB 1519 ASPIRIN EC (ECOTRIN) 81 MG PO DAILY 03/30/20 Strength: 81 MG TAB.EC 1519 Allergies Coded Allergies: No Known Allergies (03/30/20) Review of Systems Additional notes: Constitutional: Denies: chills, fatigue, fever, generalized weakness, lethargy, malaise. Respiratory: Denies: productive cough (sputum), SOB. GI: Denies: abdominal pain, constipation, diarrhea, nausea, vomiting. : Denies: urgency, vaginal bleeding. Neuro: Refers: headache Objective General VS: Last Documented: Result Date Time B/P Mean 88.0 03/30 1610 B/P 126/63 03/30 1610 Pulse 75 03/30 1610 Temp 98.2 03/30 1538 Resp 20 03/30 1538 Vital Signs Date Temp Pulse Resp B/P B/P Mean Pulse Ox FiO2 / 98.2 74-75 20 119-126/58-63 81.0-88.0 Patient Weight Weight (lb): 262 Weight (oz): Weight (kg): 118.841 Physical Exam Additional comments: Gen: AAOx3 Lungs: normal respiratory effort Neuro: Exam: alert, oriented x3 Abdomen: gravid, soft Ext: no swelling of arms or legs Uterine activity: Monitor: toco Frequency (description): none Frequency (minutes): none POLARITY TESTER: Differed no POLARITY TESTER symptoms FHR evaluation: FHR category: category I Result Findings/Data: Laboratory Tests: 03/30 1605 Chemistry Sodium (134 - 147 mEq/L) 138 Potassium (3.4 - 5.0 mEq/L) 3.7 Chloride (100 - 108 mEq/L) 108 Carbon Dioxide (21 - 33 mEq/L) 24 Anion Gap (0 - 20) 10 BUN (7 - 18 mg/dL) 8 Creatinine (0.6 - 1.3 mg/dL) 0.6 Glomerular Filtr Rate (110 - 120) 119.9 Glucose (70 - 110 mg/dL) 89 Uric Acid (2.6 - 7.2 mg/dL) 4.0 Calcium (8.0 - 10.5 mg/dL) 8.8 Total Bilirubin (<1.5 MG/DL) 0.2 AST (15 - 37 IUnit/L) 10 L ALT (15 - 65 IUnit/L) 23 Total Alk Phosphatase (20 - 125 IUnit/L) 109 Lactate Dehydrogenase (84 - 246 IUnits/L) 152 Total Protein (6.4 - 8.2 g/dL) 6.7 Albumin (3.4 - 5.0 g/dL) 2.50 L Hematology WBC (4.5 - 11.0 x10 3/uL) 13.58 H RBC (3.54 - 5.02 x10 6/uL) 3.87 Hgb (11.0 - 15.0 g/dL) 11.4 Hct (33.0 - 45.0 %) 34.9 MCV (81.0 - 99.0 fL) 90.2 MCH (27.0 - 33.0 pg) 29.5 MCHC (33.0 - 37.0 g/dL) 32.7 L RDW (11.5 - 14.5 %) 13.3 Plt Count (150 - 400 x10 3/uL) 299 MPV (7.0 - 9.0 fL) 10.6 H Neut % (Auto) (56.0 - 77.0 %) 77.6 H Lymph % (Auto) (14.0 - 32.0 %) 13.3 L [place] % (Auto) (4.8 - 9.0 %) 6.6 Eos % (Auto) (0.3 - 3.7 %) 1.3 Baso % (Auto) (0.0 - 2.0 %) 0.4 Neut # (Auto) (2.0 - 7.6 x10 3/uL) 10.54 H Lymph # (Auto) (1.0 - 3.8 x10 3/uL) 1.80 [place] # (Auto) (0.1 - 0.8 x10 3/uL) 0.90 H Eos # (Auto) (0.0 - 0.2 x10 3/uL) 0.18 Baso # (Auto) (0.0 - 0.2 x10 3/uL) 0.05 Abs Immat Gran (auto) (0.00 - 0.03 x10 3/uL) 0.11 H Add Manual Diff NO Immature Gran % (0.0 - 2.0 %) 0.8 Nucleated RBC % (0 - 0 %) 0.0 Nucleated RBCs # (Man) (0.0 - 0.1 x10 3/uL) 0.00 Urines Urine Color (YEL/STRAW) YELLOW Urine Appearance (CLEAR) CLEAR Urine pH (5.0 - 7.0) 6.0 Ur Specific [place] (1.005 - 1.030) 1.015 Urine Protein (NEGATIVE) NEGATIVE Urine Glucose (UA) (NEGATIVE) NEGATIVE Urine Ketones (NEGATIVE) NEGATIVE Urine Blood (NEGATIVE) NEGATIVE Urine Nitrite (NEGATIVE) NEGATIVE Urine Bilirubin (NEGATIVE) NEGATIVE Urine Urobilinogen (0.2 - 1.0 mg/dL) 0.2 Ur Leukocyte Esterase (NEGATIVE) NEGATIVE Urine RBC (0 - 3 RBC/HPF) 4-10 Urine WBC (0 - 3 WBC/HPF) 0-3 Ur Squamous Epith Cells (NONE SEEN /HPF) 0-5 Amorphous Sediment (NONE /HPF) TRACE Urine Bacteria (NONE SEEN /HPF) 4+ H Urine Mucus (NONE SEEN /LPF) TRACE Ur Random Creatinine (mg/dL) 102.0 U Random Total Protein (mg/dL) 11 Protein/Creatinin Ratio 0.11 Diagnosis, Assessment Plan Diagnosis, Assessment Plan Problem List/A P: 1. Chronic hypertension affecting 2. 24 weeks gestation of Free Text A P: Initial exam 1520 Patient presents due to headache, nubness of her hands, increased BP at home, swelling of hands and feet. Will send PIH labs and keep close mointoring of her BP. re-evaluation 1700 PIH labs negative 29 y/o with a PMHx of CHTN, migranes with an IUP 24 03/04 presented due to elevated BP at home. PIH labs negative and her BP has been within normal limits. Discussed case with Dr Pabon, he agreed on discharge. Patent found to be hemodynamically stable with normal normal vital signs, category I strip and found not to be in labor. Oriented on discharge and labor precautions as well as kick counts and she voiced understanding will have her follow-up with her [employer] Assessment: Migrane IUP 24 03/04 Impression: IUP 24 03/04 Plan: discharge home Plan discussed with: patient, family, nurse, Dr. Pabon at 1343 RPT #:[id number] END OF REPORT [facility] 2020-03-30 15:28:00 [facility] ([facility]) OB Medical Screening Exam REPORT#:[id number] REPORT STATUS: Signed DATE:03/30/20 TIME: 1528 PATIENT: PENNY PIZANO UNIT #: [id number] ROOM/BED: : 92 AGE: 29 SEX: F ATTEND: Juana Dunaway MD ADM DT: AUTHOR: Juana Dunaway MD * ALL edits or amendments must be made on the electronic/computer document * Medical Screening Exam Provider Attestation Comments: 29 y/o with a PMHx of CHdayday EDWARDS with an IUP 24 5 presents due to elevated BP at home. She also complains of hand nubmness, ankle and hand swelling. at 4943 RPT #:[id number] END OF REPORT [facility]
[2024-07-14 16:25] LABS: Absolute Basophils 0.1 K/uL (0-0.5); Absolute Eosinophils 0.2 K/uL (0-0.5); Absolute Lymphocytes (CBC) 1.9 K/uL (0.7-4.9); Absolute Monocytes 0.8 K/uL (0.1-1.3); Absolute Neutrophil 6.1 K/uL (1.8-8.0); Basophils % 0.6 % (0-1.3); Hematocrit 41.4 % (36.0-45.0); Hemoglobin 13.9 g/dL (12.0-15.0); Lymphocytes % 20.8 % (15.3-44.8); MCH 29.8 pg (27.0-35.0); MCHC 33.6 g/dL (32.0-36.0); MCV 88.8 fL (80-100); MPV 9.3 fL (7.6-11.3); Monocytes % 9.2 % (3.3-12.3); Neutrophils % 67.4 % (41.7-73.7); Nucleated Red Blood Cells % 0.1 % (0-0); Platelets 329 thou/uL (152-406); RBC Red Blood Cell Count 4.67 M/uL (3.86-4.86); Red Cell Distribution Width 13.5 % (12.1-15.2)
[2024-07-14 16:30] LABS: PT Prothrombin Time 12.5 SECONDS (9.4-12.5); Protime INR 1.12
[2024-07-14 16:33] LABS: Specific Gravity 1.012 (1.005-1.030); Sqamous Epithelial <5 /HPF (None Seen); Urine Bacteria None Seen /HPF (<20); Urine Bilirubin NEGATIVE (Negative); Urine Blood 3+ (Negative); Urine Clarity Clear (Clear); Urine Color Light-Yellow (Yellow); Urine Culture Reflex Order NOT NEEDED; Urine Glucose NEGATIVE (Negative); Urine Ketones NEGATIVE (Negative); Urine Microscopic Reflex YN ORDER UMIC; Urine Mucus Slight /HPF (None Seen); Urine Nitrite NEGATIVE (Negative); Urine Protein NEGATIVE (Negative); Urine RBC <5 /HPF (None Seen); Urine Urobilinogen Normal (Normal); Urine WBC <5 /HPF (<5); Urine Yeast (Budding) Trace /HPF (None Seen)
[2024-07-14 16:36] LABS: Anion Gap 8.2 mEq/L (5.0-15.0); Potassium 3.2 mEq/L (3.5-5.1)
--- NOTE | 2024-07-14 17:07 | EDPHYS ---
Physician Documentation [facility] Name: Penny Hylton Age: 33 yrs Sex: Female : 1990 Arrival Date: 07/14/2024 Time: 14:49 Bed 13 Private MD: ED Physician Antonio Lee HPI: 07/14 17:01 This 33 yrs old Female presents to ER via Ambulatory with complaints of Vaginal rn Bleeding. 17:01 The patient presents with vaginal bleeding that is light, with clots. Onset: The rn symptoms/episode began/occurred 2 month(s) ago. Modifying factors: The symptoms are alleviated by Time, the symptoms are aggravated by sexual intercourse. Severity of symptoms: At their worst the symptoms were mild, in the emergency department the symptoms are unchanged. The patient has experienced similar episodes in the past. Patient reports intermittent vaginal bleeding over the last 2 months, worse after sexual intercourse. Usually spotting and light and goes away on its own. Had sex again recently and noticed for the last 2 days vaginal bleeding, light but this time with clots. Called her help desk consultant who told her to come in for evaluation. Patient denies any vaginal itching or pain. No discharge. No foul smell. No concern for STI. No bleeding diathesis or disorder. Does not take blood thinners. No abdominal pain.. 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 - Infectious Disease History:: Denies. - Social history:: Smoking status: Patient denies any tobacco usage or history of. - Family history:: not pertinent. - Hospitalizations: : No recent hospitalization is reported. ROS: 17:01 Constitutional: Negative for fever, chills, and weight loss, Cardiovascular: Negative rn for chest pain, palpitations, and edema, Respiratory: Negative for shortness of breath, cough, wheezing, and pleuritic chest pain, Abdomen/GI: Negative for abdominal pain, nausea, vomiting, diarrhea, and constipation, : Positive for vaginal bleeding after sexual intercourse Exam: 17:01 Constitutional: This is a well developed, well nourished patient who is awake, alert, rn and in no acute distress. Cardiovascular: Regular rate and rhythm. No pulse deficits. Abdomen/GI: Soft, nontender Pelvic Exam: Speculum exam with closed cervical os, no discharge. Small amount of dark blood noted in the posterior vagina with small clots. No vaginal lacerations noted, no lesions appreciated on cervix. Vital Signs: 15:09 BP 124 / 78; Pulse 76; Resp 16; Temp 97.3; Pulse Ox 100% ; Weight 90.72 kg; Height 5 ll1 ft. 5 in. ; Pain 7/10; 16:00 BP 118 / 74; Pulse 68; Resp 16; Pulse Ox 98% on R/A; me1 17:00 BP 124 / 71; Pulse 61; Resp 15; Temp 98.1; Pulse Ox 100% ; me1 15:09 Body Mass Index 33.28 (90.72 kg, 165.1 cm) ll1 15:09 Pain Scale: Adult ll1 MDM: 14:53 Patient medically screened. rn 17:01 Differential diagnosis: Vaginosis, vaginitis, STI, malignancy, tear, laceration. Data rn reviewed: vital signs, nurses notes, lab test result(s), radiologic studies, ultrasound, and as a result, I will discharge patient. Counseling: I had a detailed discussion with the patient and/or guardian regarding the historical points, exam findings, and any diagnostic results supporting the discharge/admit diagnosis, lab results, radiology results, the need for outpatient follow up, to return to the emergency department if symptoms worsen or persist or if there are any questions or concerns that arise at home. Special discussion: I discussed with the patient/guardian in detail that at this point there is no indication for admission to the hospital. It is understood, however, that if the symptoms persist or worsen the patient needs to return immediately for re-evaluation. Based on the history and exam findings, there is no indication for further emergent testing or inpatient evaluation. I discussed with the patient/guardian the need to see the OB Gyne specialist for further evaluation of the symptoms. ED course: No laceration noted on exam, dark blood, small amount, no gross abnormality of vaginal wall or cervix. Recommend gynecological follow-up as patient has not had Pap smear in some time, has irregular bleeding after sexual intercourse and no definitive reason found here. She has made appointment for Sunday already. Recommend no intercourse or insertion of anything in vagina and gynecology follow-up for further instructions and evaluation. Ultrasound of pelvis without acute findings per infectious waste technician report.. 17:16 ED course: Pelvic examination performed with physical security specialist, Jeaneth Zavala. . rn 07/14 15:35 Order name: CBC with Diff; Complete Time: 16:41 rn 07/14 15:35 Order name: Basic Metabolic Panel; Complete Time: 16:41 rn 07/14 15:35 Order name: Protime (+inr); Complete Time: 16:41 rn 07/14 15:35 Order name: Ptt, Activated; Complete Time: 16:41 rn 07/14 15:35 Order name: Test, Urine; Complete Time: 16:41 rn 07/14 15:35 Order name: Urinalysis w/ reflexes; Complete Time: 16:41 rn 07/14 15:35 Order name: US Pelvis Complete rn 07/14 15:38 Order name: Transvaginal Study Probe EDWV 07/14 15:35 Order name: IV Start; Complete Time: 16:20 rn Administered Medications: No medications were administered Disposition Summary: 07/14/24 17:07 Discharge Ordered Notes: Location: Home rn Problem: an ongoing problem rn Symptoms: are unchanged rn Condition: Stable rn Diagnosis - Abnormal uterine and vaginal bleeding, unspecified rn Followup: rn - With: Private Physician - When: As needed - Reason: Recheck today's complaints, Re-evaluation by your physician Forms: - Medication Reconciliation Form rn - Antibiotic yarn texture machine operator - Prescription Opioid Use rn - Patient Portal Instructions rn - Leadership Thank You Letter rn Signatures: Dispatcher [facility] Antonio Lee MD MD rn Lewis, Lynsay RN RN ll1 Linette Zavala RN RN cm10 Melisa Howe, RN RN me1 Corrections: (The following items were deleted from the chart) 17:06 17:01 ED course: No laceration noted on exam, dark blood, small amount, no gross rn abnormality of vaginal wall or cervix. Recommend gynecological follow-up as patient has not had Pap smear in some time, has irregular bleeding after sexual intercourse and no definitive reason found here. She has made appointment for Sunday already. Recommend no intercourse or insertion of anything in vagina and gynecology follow-up for further instructions and evaluation.. rn
--- NOTE | 2024-07-14 17:07 | ER ---
Nurse's Notes [facility] Name: Penny Hylton Age: 33 yrs Sex: Female : 1990 Arrival Date: 07/14/2024 Time: 14:49 Bed 13 Private MD: Diagnosis: Abnormal uterine and vaginal bleeding, unspecified Presentation: 07/14 15:07 Chief complaint: Patient states: Pain and spotting after sex for the past few months. ll1 Vaginal bleeding since last night with cramping. Coronavirus screen: Client denies travel out of the [place] in the last 14 days. At this time, the client does not indicate any symptoms associated with coronavirus-19. Ebola Screen: Patient denies travel to an Ebola-affected area in the 21 days before illness onset. Initial Sepsis Screen: Does the patient meet any 2 criteria? No. Patient's initial sepsis screen is negative. Does the patient have a suspected source of infection? No. Patient's initial sepsis screen is negative. Risk Assessment: Do you want to hurt yourself or someone else? Patient reports no desire to harm self or others. Onset of symptoms was May 13, 2024. 15:07 Method Of Arrival: Ambulatory ll1 15:07 Acuity: JACQUIE 3 ll1 Triage Assessment: 15:08 General: Appears distressed, uncomfortable, Behavior is calm, cooperative, appropriate ll1 for age. Pain: Complains of pain in pelvis Quality of pain is described as aching, crampy. Neuro: No deficits noted. Cardiovascular: No deficits noted. : Reports cramping, pain in bilateral in suprapubic area vaginal bleeding that is bright red, with clots. 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 - Infectious Disease History:: Denies. - Social history:: Smoking status: Patient denies any tobacco usage or history of. - Family history:: not pertinent. - Hospitalizations: : No recent hospitalization is reported. Screenin:13 [facility] ED Fall Risk Assessment (Adult) History of falling in the last 3 months, me1 including since admission No falls in past 3 months (0 pts) Confusion or Disorientation No (0 pts) Intoxicated or Sedated No (0 pts) Impaired Gait No (0 pts) Mobility Assist Device Used No (0 pt) Altered Elimination No (0 pt) Score/Fall Risk Level 0 - 2 = Low Risk Maintained a safe environment, Provided non-skid footwear, Hourly rounding (assess needs \T\ fall precautionary measures) done. Abuse screen: Denies threats or abuse. Nutritional screening: No deficits noted. Tuberculosis screening: No symptoms or risk factors identified. Assessment: 16:13 General: Appears uncomfortable, well groomed, well developed, well nourished, Behavior me1 is calm, cooperative, appropriate for age, Reports Difficulty swallowing and pressure to throat area for 10 days. No known fever. Pain: Complains of pain in pelvis Pain does not radiate. Pain Quality of pain is described as crampy, Pain began gradually, Is continuous. Neuro: Level of Consciousness is awake, alert, obeys commands, Oriented to person, place, time, situation, Appropriate for age. Cardiovascular: Patient's skin is warm and dry. Respiratory: Airway is patent Respiratory effort is even, unlabored, Respiratory pattern is regular, symmetrical. GI: No signs and/or symptoms were reported involving the gastrointestinal system. : Vaginal discharge is bloody. : Reports vaginal bleeding that is. EENT: No signs and/or symptoms were reported regarding the EENT system. Derm: Skin is intact, is healthy with good turgor, Skin is pink, warm \T\ dry. Musculoskeletal: No signs and/or symptoms reported regarding the musculoskeletal system. Vital Signs: 15:09 BP 124 / 78; Pulse 76; Resp 16; Temp 97.3; Pulse Ox 100% ; Weight 90.72 kg; Height 5 ll1 ft. 5 in. ; Pain 7/10; 16:00 BP 118 / 74; Pulse 68; Resp 16; Pulse Ox 98% on R/A; me1 17:00 BP 124 / 71; Pulse 61; Resp 15; Temp 98.1; Pulse Ox 100% ; me1 15:09 Body Mass Index 33.28 (90.72 kg, 165.1 cm) [facility] 15:09 Pain Scale: Adult [facility] ED Course: 14:52 Patient arrived in ED. ra3 14:53 Antonio Lee MD is Attending Physician. rn 15:00 Arm band placed on. cm10 15:08 Triage completed. ll1 15:52 Transvaginal Study Probe In Process Unspecified. EDMS 16:10 Patient placed in an exam room, on a stretcher. ll1 16:11 Melisa Howe, RN is Primary Nurse. me1 16:13 Patient has correct armband on for positive identification. Bed in low position. Call me1 light in reach. Side rails up X 1. Provided Education on: POC. Verbalized understanding. . Client placed on continuous cardiac and pulse oximetry monitoring. NIBP monitoring applied. Pulse ox on. NIBP on. 16:13 Initial lab(s) drawn, by me, sent to lab. Urine collected: clean catch specimen, clear. cc6 Inserted saline lock: 22 gauge in left antecubital area, using aseptic technique. Blood collected. Flushed with 10 mL NS. 16:13 No provider procedures requiring assistance completed. me1 17:17 Assist provider with pelvic exam: Set up pelvic tray. Performed by Antonio Lee MD Patient tolerated well. 17:26 IV discontinued, intact, bleeding controlled, No redness/swelling at site. Pressure me1 dressing applied. Administered Medications: No medications were administered Medication: 16:13 VIS not applicable for this client. me1 Outcome: 17:07 Discharge ordered by . rn 17:26 Discharged to home ambulatory, me1 17:26 Condition: stable 17:26 Discharge instructions given to patient, Instructed on discharge instructions, follow up and referral plans. Demonstrated understanding of instructions, follow-up care, 17:27 Patient left the ED. me1 Signatures: Dispatcher [employer] [facility] Antonio Lee MD MD rn Lewis, Lynsay, RN RN ll1 Sapphire Zavala Clarissa, RN RN cm10 Melisa Howe RN RN me1 Isadora Shahid ra3 Tawanna Melo cc6 Corrections: (The following items were deleted from the chart) 15:13 15:09 Resp 16bpm; ll1 ll1 16:12 15:07 Chief complaint: Patient states: Pain and spotting after sex for the past few me1 months. Vaginal bleeding since last night with cramping. ll1
--- NOTE | 2024-07-14 17:10 | RAD REPORT ---
EXAMINATION: Transvaginal Study Probe CLINICAL INDICATION: Female 33 years old.[facility] 2 weeks ago abnormal vaginal bleeding Bed Name: IW1 TECHNIQUE: Real-time ultrasonography of the pelvis was performed transvaginally. Color and spectral D oppler evaluation of the ovaries was performed. COMPARISON: 05/02/2015 FINDINGS: UTERUS AND CERVIX: The uterus is retroflexed, measures 8 cm in length. The uterus is normal in morpho logy otherwise. No masses seen The endometrium is normal, 0.9 cm in thickness. RIGHT OVARY: Normal The right ovary measures 2.7 x 1.5 x 1.9 cm. Normal color and spectral Doppler evaluation of the right ovary.. LEFT OVARY: Normal The left ovary measures 2.5 x 2.0 x 2.0 cm. Normal color and spectral Doppler evaluation of the left ovary.. FREE FLUID: No free fluid. IMPRESSION: Retroflexed uterus. Otherwise normal pelvic ultrasound.
== END 2024-07-14 17:27 | disposition home or self-care (01) ==
LOC: ER 14:49
DX: N93.9 Abnormal uterine and vaginal bleeding, unspecified (principal)
CPT/HCPCS: 36415; 76830; 80048; 81001; 81025; 85025; 85610; 85730; 99284